=== PATIENT | male | born 1960 | race Caucasian/White ===

== ENCOUNTER 2025-04-11 09:46 | Emergency (ER) | payer OTHER, SELFPAY ==
--- NOTE | ~2025-04-11 | XR_ITS ---
EXAMINATION: XR chest 2V DATE: 04/11/2025 11:39 INDICATION: Shortness of breath and cough TECHNIQUE: PA and lateral views of the chest were obtained. COMPARISON: None FINDINGS: Perihilar bronchial wall thickening. No airspace opacities, pulmonary edema, pleural effusion or pneumothorax. The cardiomediastinal silhouette is normal. Mild to moderate thoracic spondylosis. IMPRESSION: 1. Perihilar bronchial wall thickening without focal airspace opacities which could be seen with bronchitis or reactive airway disease/asthma. Reviewed, dictated and finalized at location A. IMPRESSION: 1. Perihilar bronchial wall thickening without focal airspace opacities which c ould be seen with bronchitis or reactive airway disease/asthma.
[2025-04-11 09:52] VITALS: BP 161/80; PULSE 127; RESP 18; TEMP 36.8; O2SAT 98
--- NOTE | 2025-04-11 09:55 | ECG_ITS ---
Test Date: 2025-04-11 09:59:49 Measurements Intervals Mountain Rate: 109 P: 15 MD: 148 QRS: 32 QRSD: 82 T: 26 QT: 315 QTc: 425 Interpretive Statements SINUS TACHYCARDIA DELAYED PRECORDIAL R/S TRANSITION ABNORMAL ECG No previous ECG available for comparison Electronically Signed On 04-11-2025 10:32:46 CDT by Vicente Fleming D.O.
[2025-04-11 10:43] LABS: Influenza A QL RT-PCR Negative (Negative); Influenza B QL RT-PCR Negative (Negative); RSV RNA, RT-PCR Negative (Negative); SARS-CoV-2 RNA PCR Negative (Negative)
[2025-04-11 11:11] VITALS: O2SAT 98
[2025-04-11 11:51] LABS: Hematocrit 38.4 % (42.0-52.0); Hemoglobin 12.9 g/dL (14.0-18.0); Immature Granulocyte Percent A 0.4 % (0-0.5); Lymphocytes Absolute Auto 1.07 K/mm3 (0.9-3.2); Mean Corpuscular HGB Conc 33.6 g/dl (32-36); Mean Corpuscular Hemoglobin 31.1 pg (26-34); Mean Corpuscular Volume 92.5 fl (80-100); Nucleated Red Blood Cells Absolute Auto 0.000 K/mm3 (0.0-0.012); Nucleated Red Blood Cells Perc 0.0 % (0.0-0.2); Platelet Count Result 303 k/mm3 (150-375); Red Blood Count 4.15 M/mm3 (4.6-6.20); White Blood Count 10.2 K/mm3 (4.5-10.0)
--- NOTE | 2025-04-11 12:01 | ED_ITS ---
HPI - URI/Sore Throat General Chief Complaint: Upper Respiratory Infection Stated Complaint: URI sx Time Seen by Provider: 04/11/25 11:16 Source: patient Mode of arrival: ambulatory Limitations: no limitations History of Present Illness HPI Narrative: This is a 64 year old male that presents to the ER for cold symptoms. Ongoing over the last week. Reports cough, congestion. Reports he was seen by urgent care and placed on Augmentin. Reports he has had left sided chest pain radiating to his back. Worse with coughing. Related Data Allergies Allergy/AdvReac Type Severity Reaction Status Date / Time No Known Allergies Allergy Verified 04/11/25 11:15 Review of Systems 2 Review of Systems: All systems reviewed & are unremarkable except as noted in HPI and below Exam 2 Narrative: GENERAL: Well-appearing, well-nourished, and in no acute distress. HEAD: Normocephalic, atraumatic. EYES: EOMI. ENT: Nares clear, no rhinorrhea or epistaxis. Mucous membranes moist. Oropharynx without tonsillar hypertrophy exudate or other lesions. Bilateral TMs pearly sykes non-bulging NECK: Supple. No adenopathy or masses. CHEST: No respiratory distress. Lung sounds coarse with scattered wheezing. No rales or rhonchi HEART: Regular rate and rhythm. No murmur heard. Normal peripheral pulses. EXTREMITIES: Normal range of motion. No edema. SKIN: Warm, dry, no rash. NEURO: No focal deficits. Alert and oriented x3. PSYCH: Normal mood and affect Course Vital Signs Vital signs: Vital Signs Temperature 98.2 F 04/11/25 09:52 Pulse Rate 127 H 04/11/25 09:52 Respiratory Rate 18 04/11/25 09:52 Blood Pressure 161/80 H 04/11/25 09:52 Pulse Oximetry 98 04/11/25 09:52 Temperature 98.1 F 04/11/25 14:35 Pulse Rate 67 04/11/25 14:35 Respiratory Rate 15 04/11/25 14:35 Blood Pressure 142/87 H 04/11/25 14:35 Pulse Oximetry 100 04/11/25 14:35 Oxygen Delivery Room Air 04/11/25 11:11 MDM - URI/Sore Throat MDM Narrative Medical decision making narrative: Patient presents to the emergency department for cold symptoms. Ongoing over the last week. Currently taking Augmentin. He is afebrile and nontoxic appearing. Tachycardic upon arrival, this normalized without intervention. CBC with mild leukocytosis to 10.2. Metabolic panel without concerning findings. Influenza, RSV and COVID screens are negative. Chest x-ray showing findings of bronchitis. Patient given nebulizer treatment and steroid with relief. Instructed on further care bronchitis. He was given warnings to return to the ER Differential Diagnosis Differential diagnosis: Likely upper respiratory infection, sinusitis, viral infection, bronchitis, influenza and other (pneumonia) Lab Data Attestation: I reviewed the patient's lab results. 04/11/25 11:45 04/11/25 11:45 Labs: Lab Results 04/11/25 04/11/25 Range/Units 10:01 11:45 WBC 10.2 H (4.5-10.0) K/mm3 RBC 4.15 L (4.6-6.20) M/mm3 Hgb 12.9 L (14.0-18.0) g/dL Hct 38.4 L (42.0-52.0) % MCV 92.5 (80-100) fl MCH 31.1 (26-34) pg MCHC 33.6 (32-36) g/dl RDW 12.6 (11.5-14.5) % Plt Count 303 (150-375) k/mm3 MPV 9.2 (7.4-10.4) fl Immature Gran % (Auto) 0.4 (0-0.5) % Neut % (Auto) 73.7 H (45.5-73.1) % Lymph % (Auto) 10.5 L (18.3-44.2) % Marathon % (Auto) 13.2 H (2.6-8.5) % Eos % (Auto) 1.8 (0-4.4) % Baso % (Auto) 0.4 (0.2-1.2) % Lymph # (Auto) 1.07 (0.9-3.2) K/mm3 Marathon # (Auto) 1.3 H (0.1-0.6) K/mm3 Eos # (Auto) 0.2 (0-0.3) K/mm3 Baso # (Auto) 0.0 (0.0-0.1) K/mm3 Abs Immat Gran (auto) 0.04 H (0.00-0.031) K/mm3 Absolute Neuts (auto) 7.5 H (1.3-6.7) K/mm3 Absolute Nucleated RBC 0.000 (0.0-0.012) K/mm3 Nucleated RBC % 0.0 (0.0-0.2) % PT 13.6 (11.1-14.7) Seconds INR 1.0 APTT 30.1 (22.3-36.8) Seconds Sodium 135 L (137-145) mmol/L Potassium 4.2 (3.4-5.0) mmol/L Chloride 97 L (98-107) mmol/L Carbon Dioxide 30 (22-30) mmol/L Anion Gap 8 (4-12) mmol/L BUN 14 (9-20) mg/dL Creatinine 0.84 (0.7-1.3) mg/dL Estim Creat Clear Calc 89 ml/min Estimated GFR > 60 (59 - ) Glucose 120 H (65-110) mg/dL Calcium 9.7 (8.4-10.2) mg/dL Total Bilirubin 1.0 (0.2-1.3) mg/dL AST 30 (17-59) U/L ALT 51 H (6-50) U/L Alkaline Phosphatase 64 (38-126) U/L Troponin I < 0.012 (0.000-0.034) ng/mL Total Protein 8.4 H (6.3-8.2) g/dL Albumin 4.8 (3.5-5.1) g/dL Influenza A (RT-PCR) Negative (Negative) Influenza B (RT-PCR) Negative (Negative) RSV (RT-PCR) Negative (Negative) SARS-CoV-2 RNA (RT-PCR) Negative (Negative) Imaging Data Radiologist's impression: ITS Impressions Chest X-Ray 04/11/25 11:42 IMPRESSION: 1. Perihilar bronchial wall thickening without focal airspace opacities which could be seen with bronchitis or reactive airway disease/asthma. Critical Care Time Critical Care Time Critical Care Time: No Discharge Plan Discharge Clinical Impression: Bronchitis Patient Disposition: Home Condition: Improved Instructions: Acute Bronchitis (ED) Additional Instructions: Return to the emergency department for worsening symptoms, or any other concerns Remain well-hydrated, get plenty of rest. Take Tylenol or Motrin [id number] for pain as needed. Flonase for nasal congestion. Zyrtec for runny nose. Albuterol every 4-6 hours as needed for shortness of breath or wheezing. Continue steroid as prescribed Follow up with primary care doctor Patient Language: Irish Prescriptions: New prednisone 20 mg tablet 40 mg PO DAILY 4 Days Qty: 8 0RF albuterol sulfate [Ventolin HFA] 90 mcg/actuation HFA aerosol inhaler 2 puff inhalation QID PRN (Reason: shortness of breath or wheezing) Qty: 8.5 0RF albuterol sulfate 2.5 mg/0.5 mL solution for nebulization 5 mg inhalation Q6H PRN (Reason: shortness of breath or wheezing) Qty: 30 0RF Follow-up/Referrals: Aster Apodaca PA [Primary Care Provider, Hospitalist]
[2025-04-11 12:05] LABS: INR 1.0; Prothrombin Time 13.6 Seconds (11.1-14.7)
[2025-04-11 12:06] LABS: Partial Thromboplastin Time 30.1 Seconds (22.3-36.8)
[2025-04-11 12:16] LABS: Alanine Aminotransferase 51 U/L (6-50); Albumin Level 4.8 g/dL (3.5-5.1); Alkaline Phosphatase 64 U/L (38-126); Anion Gap 8 mmol/L (4-12); Aspartate Amino Transferase 30 U/L (17-59); Bilirubin,Total 1.0 mg/dL (0.2-1.3); Blood Urea Nitrogen 14 mg/dL (9-20); Calcium 9.7 mg/dL (8.4-10.2); Carbon Dioxide 30 mmol/L (22-30); Chloride 97 mmol/L (98-107); Estimated CRCL calculation 89 ml/min; Estimated Glomerular Filt Rate > 60; Glucose 120 mg/dL (65-110); Potassium 4.2 mmol/L (3.4-5.0); Sodium 135 mmol/L (137-145); Total Protein 8.4 g/dL (6.3-8.2)
[2025-04-11 12:19] VITALS: PULSE 96; RESP 20
[2025-04-11] MEDS: IPRATROPIUM 0.5 MG/ALBUTEROL SULFATE 2.5 MG (BASE) AMPUL.NEB 3 ML INHALATION (12:19)
[2025-04-11 12:27] VITALS: PULSE 103; RESP 20
[2025-04-11 12:42] LABS: Troponin I < 0.012 ng/mL (0.000-0.034)
[2025-04-11 14:35] VITALS: BP 142/87; PULSE 67; RESP 15; TEMP 36.7; O2SAT 100
== END 2025-04-11 14:36 | disposition home or self-care (01) ==
PROVIDERS: Emergency Medicine; Emergency Provider Physician Assistant; PCP Physician Assistant
DX: J40 Bronchitis, not specified as acute or chronic (principal); Z20.822 Contact with and (suspected) exposure to COVID-19
CPT/HCPCS: 36415; 71046; 80053; 84484; 85025; 85610; 85730; 87637; 93005; 94640; 96374; 99284; J2919

== ENCOUNTER 2025-04-30 10:18 | Observation (INO) | payer OTHER, SELFPAY ==
--- OUTSIDE RECORDS SUMMARY | 2008-12-31 05:00 | XMS_ITS | Continuity of Care Document ---
Author Organization [facility] Address [address] [place] [address] Phone Care Team Providers Care Customer Supply Chain Analyst Name Role Phone Unavailable Unavailable Unavailable Procedures Procedure Date Postop followup visit Postop followup visit X-ray exam of pelvis, 1-2 views 009 X-ray exam of hip, 1 view Total hip arthroplasty &prosthesis Office/outpatient visit,[facility] [place] X-ray exam of hip, 1 view Disability Form Advance Directives Directive Yes / No Effective Date File Name No Information Encounters Encounter Description Practice Location Reason(s) For Visit Diagnoses Date Provider Providers Copied on Encounter [facility], [address], [place], [place], [id number], [place] tel:[phone] [employer] [facility] No Information No Information Referring Provider: Johnnie Medina, [address] [place] [address] [address], [place], [address]. tel:[phone] [facility], [address], [place], [place], [id number], [place] tel:[phone] [employer] [facility] No Information No Information Referring Provider: Johnnie Medina, [address] [place] [address] [address], [place], [address]. tel:[phone] [employer] [facility], [address] [facility] [address], [place], [id number], [place] tel:[phone] [facility] No Information 9 No Information Referring Provider: Johnnie Medina, [address], [place], [address]. tel:[phone] Office/outpat ient visit,[place], [facility] [place] [facility], [address] [address], [place], [place], [id number], [place] tel:[phone] [facility] [employer] [facility] No Information 9 No Information Referring Provider: Johnnie Medina, [address], [place], [address]. tel:[phone] [facility], [address] [facility] [facility] [address], [place], [place], [id number], [place] tel:[phone] [facility] [employer] [employer] [facility] No Information 9 No Information Family History Family Member Type Diagnosis Age At Onset No Information Payers Payer name Insurance type Covered libertarian ID Beatriz real(s) Chris [facility] [employer] [facility] [id number] Social History Type Description Quantity Date Captured Comments Sex Male Smoking Status No Information Chief Complaint And Reason For Visit No Information Reason For Referral Reason For Referral No Information History Of Present Illness Encounter Date Complaint History Of Prese nt Illness No Information Functional Status Date Functional Assessmen t No Information Instructions Date Instruction Additional Infor mation No Information Assessments Type Assessment Date No Information Patient Care Teams Name Effective Dates (start - stop) Status Members No Information
--- OUTSIDE RECORDS SUMMARY | 2008-12-31 05:00 | XMS_ITS | Continuity of Care Document ---
Author Organization [facility] Address [address] [place] [address] Phone Care Team Providers Care Chemist Inorganic Name Role Phone Unavailable Unavailable Unavailable Procedures Procedure Date Postop followup visit Postop followup visit X-ray exam of pelvis, 1-2 views 009 X-ray exam of hip, 1 view Total hip arthroplasty &prosthesis [place] [place] exam of hip, 1 view Disability Form Advance Directives Directive Yes / No Effective Date File Name No Information Encounters Encounter Description Practice Location Reason(s) For Visit Diagnoses Date Provider Providers Copied on Encounter [facility] [employer] [employer] [facility], [address] [facility] [address], [place], [place], [id number], [place] tel:[phone] [employer] [facility] No Information No Information Referring Provider: Johnnie Medina, [address] [place] [address] [address], [place], [address]. tel:[phone] [facility], [address], [place], [place], [id number], [place] tel:[phone] [employer] [facility] No Information No Information Referring Provider: Johnnie Medina, [address] [place] [address] [address], [place], [address]. tel:[phone] [employer] [facility], [address] [facility] [address], [place], [id number], [place] tel:[phone] [facility] No Information 9 No Information Referring Provider: Johnnie Medina, [address] [facility] [address] [facility] [address], [place], [address]. tel:[phone] [place] [facility] [place] [facility], [address] [facility] [address], [place], [place], [id number], [place] tel:[phone] [facility] [employer] [facility] No Information 9 No Information Referring Provider: Johnnie Medina, [address] [facility] [address], [place], [address]. tel:[phone] [facility], [address] [facility] [address], [place], [place], [id number], [place] tel:[phone] [facility] [employer] No Information 9 No Information Family History Family Member Type Diagnosis Age At Onset No Information Payers Payer name Insurance type Covered democrat ID Beatriz rael(s) Chris [facility] [employer] [facility] [id number] Social History Type Description Quantity Date Captured [...]
[2025-04-30] VITALS (8 sets, daily range): BP systolic 122–158; BP diastolic 52–94; PULSE 73–97; RESP 16–20; TEMP 36.4–36.6; O2SAT 95–100; BMI 31.7
--- NOTE | ~2025-04-30 | XR_ITS ---
EXAM/PROCEDURE: XR UGI w small bowel HISTORY: melena, negative egd COMPARISON: None available. TECHNIQUE: Air contrast upper GI and small bowel follow-through series performed. Effervescent crystals, as well as thickened thin barium were employed. Last be time: 1.9 minutes Number of images: 37 DAP: 559.69 [place] per square centimeter FINDINGS: Small hiatal hernia and tertiary contractions in the esophagus noted. The esophagus otherwise appears normal and patent. No reflux was elicited on provocative maneuvers. Gastroesophageal junction unremarkable other than the small hiatal hernia. The air contrast images of the stomach and duodenal bulb very limited. No large ulceration, extravasation of contrast or obvious mass. On the small bowel series, contrast flowed rapidly through the small bowel probably in the right hemicolon within 30 minutes. No obvious strictures or obstructions. No extravasation of contrast. IMPRESSION: 1. Small hiatal hernia and tertiary contractions of the esophagus suggesting esophagitis. Otherwise normal-appearing esophagus. 2. Limited air contrast images of the stomach which otherwise appear normal. The duodenal bulb is poorly evaluated and endoscopic evaluation should be considered as clinically appropriate. 3. Rapid transit of contrast through the small bowel. Query if patient has presentation suggestive of hyperactive bowel. No evidence of obstruction or extravasation. Reviewed, dictated and finalized at location A. TES GRINDER IMPRESSION: 1. Small hiatal hernia and tertiary contractions of the esophagus suggesting es ophagitis. Otherwise normal-appearing esophagus. 2. Limited air contrast images of the stomach which otherwise appear normal. Th e duodenal bulb is poorly evaluated and endoscopic evaluation should be conside red as clinically appropriate. 3. Rapid transit of contrast through the small bowel. Query if patient has pres entation suggestive of hyperactive bowel. No evidence of obstruction or extrava sation.
--- NOTE | ~2025-04-30 | CT_ITS ---
EXAMINATION: CTA abdomen pelvis DATE: 04/30/2025 14:35 INDICATION: Gastrointestinal bleed. TECHNIQUE: Computed tomographic angiography (CTA) of the abdomen and pelvis was performed with 100 mL Omnipaque-350 intravenous contrast. Additional 3D reconstructions utilizing rotating maximum intensity projection (MIP) were performed. Automated exposure control and iterative reconstruction technique were employed. The dose-length product was 880.21 mGy-cm. COMPARISON: None FINDINGS: Lung bases are clear. Heart size is normal. No pericardial or pleural effusion. Calcified paraesophageal lymph node consistent with old granulomatous disease. Diffuse hepatic steatosis with focal sparing along the gallbladder fossa. Gallbladder, spleen, pancreas, bilateral adrenal glands and kidneys are normal. Bladder is normal. There is mild scattered colonic diverticulosis without adjacent inflammatory change to suggest diverticulitis. Small bowel and appendix are normal. No bowel intraluminal contrast to suggest active gastrointestinal hemorrhage. Change of prior umbilical hernia mesh repair. F usiform infrarenal abdominal aortic aneurysm measuring up to 4.7 cm maximal diameter. Very small endothelial flap along the left side of the abdominal aorta near the bifurcation. Moderate 50-70% stenosis at the origins of the bilateral renal arteries. Moderate-sized fat-containing left inguinal hernia. Resurfacing type right total hip arthroplasty. Moderate lumbosacral and mild lumbar and lower thoracic spondylosis. IMPRESSION: 1. No evident gastrointestinal bleed or other acute intra-abdominal/pelvic process. 2. 4.7 cm infrarenal abdominal aortic aneurysm with small endotracheal flap near the aortic bifurcation. 3. Moderate 50-70% stenosis of the origins of the bilateral renal arteries. 4. Diffuse hepatic steatosis. 5. Moderate-sized fat-containing left inguinal hernia. Reviewed, dictated and finalized at location A. [employer]DER IMPRESSION: 1. No evident gastrointestinal bleed or other acute intra-abdominal/pelvic proc ess. 2. 4.7 cm infrarenal abdominal aortic aneurysm with small endotracheal flap anna r the aortic bifurcation. 3. Moderate 50-70% stenosis of the origins of the bilateral renal arteries. 4. Diffuse hepatic steatosis. 5. Moderate-sized fat-containing left inguinal hernia.
--- NOTE | ~2025-04-30 | NM_ITS ---
EXAMINATION: NM GI bleeding DATE: 05/02/2025 09:36 INDICATION: Melena with negative endoscopy TECHNIQUE: 23.4 mCi Tc 99m in vitro labeled red cells administered intravenously. Scintigraphic images of the abdomen were obtained through one hour. FINDINGS: No pattern of abnormal activity is seen in the abdomen or pelvis to suggest gastrointestinal hemorrhage. IMPRESSION: 1. No scintigraphic evidence for active gastrointestinal bleeding. Reviewed, dictated and finalized at location A. UNT SUPPORT REP
--- OUTSIDE RECORDS SUMMARY | 2025-04-30 11:04 | XMS_ITS | Clinical Summary ---
Author Organization [facility] Address [address] [place] [address] Care Team Providers Care Bicycle Repairer Name Role Phone Brittny Lujan Primary Care Provider Source Comments [facility],non-owned Affiliates and Associated Physician Practices is amultiple site organization consisting of ambulatory clinics and hospital sitesin [place], [place], [place] and [place]. This disclosure is being madepursuant to the Care Everywhere program and may not contain all information available regarding this patient. Last updated 18.[facility] Allergies No known active allergies Medications * Be aware that medications may not be up to date on this document. Alwaysverify current medications with the patient. atorvastatin (LIPITOR) 20 MG tablet Take 20 mg by mouth once daily 11/11/2020 Active losartan-hydroC HLOROthiazide (HYZAAR) 100-25 MG tablet Take 1 tablet by mouth once daily 11/30/2020 Active HYDROcodone-neel taminophen (NORCO) 7.5-325 MG tablet Take 1 (one) tablet by mouth every 4 hours as needed for Pain 15 tablet 12/13/2020 Active metFORMIN (GLUCOPHAGE) 1000 MG tablet Take 500 mg by mouth once daily Active aspirin (ASPIRIN) 81 MG chew tablet Take 1 (one) tablet by mouth 2 times daily with morning and evening meal 11/19/2021 Active docusate sodium (COLACE) 100 MG capsule Take 1 (one) capsule by mouth 2 times daily 11/19/2021 Active Active Problems Problem Noted Date Diagnosed Date History of partial knee replacement 11/18/2021 Severe sepsis 12/11/2020 Septic shock 12/11/2020 Cardiac arrest 12/10/2020 Immunizations Immunization Administration Dates Next Due INFLUENZA VACCINE, QUADR. (F LUZONE; FLULAVAL; FLUARIX; AFLURIA QUADRIVALENT; 6MO+), 0.5 ML (IIV4) 07/01/2020 Zoster Hzv Vacc Recombinant Inj Im 09/04/2020, Family History Medical History Relation Name Comments Stroke Maternal Grandmother CAD (Coronary Artery Disease) Mother Diabetes Mother Hypertension Mother Relation Name Status Comments Maternal Grandmother Mother Social History Tobacco Use Types Packs/Day Years Used Date Smoking Tobacco: Former Cigarettes Q uit: 07/13/2000 Smokeless Tobacco: Never Alcohol Use Standard Drinks/Week Comments Yes 0 (1 standard drink = 0.6 oz pur e alcohol) Hunger Vital Sign Answer Date Recorded Within the past 12 months, y ou worried that your food would run out before you got the money to buy more. Never true 11/20/19 Within the past 12 months, t he food you bought just didn't last and you didn't have money to get more. 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 Gender Identity Not on file Sexual Orientation Not on file Last Filed Vital Signs Vital Sign Reading Time Taken Comments Blood Pressure 144/67 11/19/2021 1:05 PM CDT Pulse 92 11/19/2021 1:05 PM CDT Temperature 36.7 C (98 F) 11/19/2021 1:05 PM CDT Respiratory Rate 18 11/19/2021 1:05 PM CDT Oxygen Saturation 92% 11/19/2021 1:05 PM CDT Inhaled Oxygen Concentration 40% 12/11/2020 5 :12 AM CDT Weight 104.3 kg (230 lb) 11/12/2021 8:27 AM CDT Height 172.7 cm (5' 8) 11/12/2021 8:27 AM CDT Body Mass Index 34.97 11/12/2021 8:27 AM CDT Plan of Treatment Health Maintenance Due Date Last Done Comments CT COLONOGRAPHY - COLON CA SCREENING 1960 FIT - COLON CA SCREENING 1960 FLEX SIG - COLON CA SCREENING 1960 HIV SCREENING 1975 HEPATITIS C SCREENING 06/25/1978 DTAP/TDAP/TD VACCINES (1 - Tdap) 1979 PNEUMOCOCCAL VACCINE 50+ (1 of 1 - PCV) 2010 COLOGUARD (AGES 45-75) - COL ON CA SCREENING 08/27/2023 08/26/2020 DEPRESSION SCREENING 06/21/2024 COVID-19 VACCINE (1 - 2023-2 5 season) 2025 INFLUENZA VACCINE (#1) 2025 07/01/2020 COLON MONITORING 09/13/2030 09/13/2020 COLONOSCOPY - COLON CA SCREENING 09/13/2030 09/13/2020 Colorectal Cancer Screening 09/13/2030 Respiratory Syncytial Virus (RSV) Vaccine Pt: or over 60 yrs (1 - 1-dose 75+ series) 2035 ZOSTER VACCINE Completed 09/04/2020, 07/01/2020 HEPATITIS B VACCINE Aged Out No longe r eligible based on patient's age to complete this topic HIB VACCINE Aged Out No longer eligi ble based on patient's age to complete this topic HPV VACCINE Aged Out No longer eligi ble based on patient's age to complete this topic MENINGOCOCCAL (Group B) VACCINE SHARED DECISION-MAKING Aged Out No longer eligible based on patient's age to complete this topic MENINGOCOCCAL GROUPS A/C/Y/W VACCINE Aged Out No longer eligible b ased on patient's age to complete this topic Medical Devices Implanted Type Area Telesales Representative Device Identifier Shelf Expiration Date Model / Serial / Lot Mesh Physio 10cm X 15cm Implanted:Qty: 1 on 07/13/2013 by Deng Busch MD at [facility] N/A: Abdomen [employer] 01/18/2015 [id number] / / [id number] Twin Peg Femoral Implanted:Qty: 1 on 11/18/2021 by Merritt Barragan MD at [facility] Left: Knee [employer] 08/22/2031 [id number] / / [id number] Tray Tib Oxfd C Lt Mdl Uncmp Implanted:Qty: 1 on 11/18/2021 by Merritt Barragan MD at [facility] Left: Knee [employer] 09/03/2031 [id number] / / [id number] Cmnt Bone Djo Srg Cblt 40gm Hvisc Strl Implanted:Qty: 1 on 11/18/2021 by Merritt Barragan MD at [facility] Left: Knee [employer] 01/01/2023 [id number] / / [id number] Brng 3mm Oxfd Arcm Kn Lt Mnscl Phs 3 Implanted:Qty: 1 on 11/18/2021 by Merritt Barragan MD at [facility] Left: Knee [employer] 07/02/2026 [id number] / / [id number] Insurance [address] CARE Advance Directives * Full Code (Latest Code Status on File) Date Activated Date Inactivated Comments 11/18/2021 8:09 PM 11/19/2021 7:55 PM * Full Code Date Activated Date Inactivated Comments 12/10/2020 3:08 PM 12/13/2020 1:51 PM Care Teams Bicycle Repairer Relationship Specialty Start Date End Date Brittny Luajn DO [address] [place] [phone] PCP - General Family Medicine 12/10/20
--- OUTSIDE RECORDS SUMMARY | 2025-04-30 11:04 | XMS_ITS | Clinical Summary ---
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 [employer] Gender Identity Not on file Sexual Orientation Not on file Plan of Treatment Health Maintenance Due Date Last Done Comments Hepatitis C Virus (HCV) Screening 1960 TdaP Immunization 1960 Cologuard 2005 Colonoscopy 2005 Colorectal Cancer Screening 2005 Immunochemical Fecal Occult Blood 2005 Pneumococcal Immunization (5 0+ years) (1 of 1 - PCV) 2010 Zoster Immunization (1 of 2) 2010 Influenza Immunization (#1) 02/19/202507/2018, 04/12/2018 SARS-COV-2 Immunization ( - season) 2025 Respiratory Syncytial Virus (RSV) Immunization (Adult) (1 - 1-dose 75+ series) 2035 Hepatitis B Immunization Aged Out No longer eligible based on patient's age to complete this topic Human Papillomavirus (HPV) Immunization Aged Out No longer eligible b ased on patient's age to complete this topic Meningococcal Immunization (ACWY) Aged Out No longer eligible b ased on patient's age to complete this topic Rotavirus Immunization Aged Out No lo nger eligible based on patient's age to complete this topic
--- NOTE | 2025-04-30 12:58 | ED_ITS ---
HPI - GI Bleed General Chief complaint: GI Bleed Stated complaint: black tarry stool Time Seen by Provider: 04/30/25 12:39 Source: patient Mode of arrival: ambulatory Limitations: no limitations History of Present Illness HPI Narrative: Patient presents with reported black tarry stool starting on Wednesday. It has occurred each time he has a bowel movement, approximately 8 episodes. This started on 04/28 2025. He initially states he has a history an abscess on his aorta which gets routine monitoring. Through further discussion it was clarifies that he seems to mean he has an abdominal aortic aneurysm which he gets surveillance on, last performed 2 years ago and reportedly an estimated 4.2 cm although he is not certain about the measurement. He states this takes place through [facility] and he had previously seen a surgeon through [place] to discuss this. He is not on anticoagulation or NSAIDs. Not on steroids chronically although he reports that he was seen approximately a month ago for congestion. 81 mg aspirin is taken. He states this has never happened before. He denies any abdominal pain. He does follow regularly with a psychiatric technician assistant but did have a colonoscopy performed somewhere else approximately 1-2 years ago and states that he did have a few polyps removed during this. He does not take iron or Pepto-Bismol. He describes the stool as melena although he notes that if he leaves the stools that in the toilet bowl it will have red blood that seems to leak out of it. Tried to call his PCP Dr Zavala in [place] (although hasn't established with them yet) but was told to come to the ED. LBM this AM. Related Data Home Medications ?Medication ?Instructions ?Recorded ?Confirmed ?Last Taken ?Type atorvastatin 20 mg tablet 20 mg PO DAILY 04/30/2504/2104/30/25 History losartan 100 1 tablet PO DAILY 04/30/25 1 06/30/24 04/30/25 History mg-hydrochlorothiazide 25 mg tablet metformin 500 mg tablet,extended 500 mg PO .q noon 04/1404/30/25 04/29/25 History release 24 hr Allergies Allergy/AdvReac Type Severity Reaction Status Date / Time No Known Allergies Allergy Verified 04/30/25 17:35 [facility] Past Medical History Medical History (Updated 05/01/25 @ 00:11 by Iwona Perrin MD) Bronchitis March 2025 Abdominal aortic aneurysm Surgical History Surgical History History of colonoscopy approx Family History Family History (Updated 04/30/25 @ 17:43 by Dionne Lundberg RN) Mother Heart disease Hypertension MVA (motor vehicle accident) Sibling Throat cancer Cerebrovascular accident Father Accident at workplace Social History Social History Smoking packs per day: 1 Smoking cigarettes per day: 20.0 Smoking status: Former smoker Tobacco type: cigarettes Second hand tobacco smoke exposure: No Smoking end date: 06/21/99 Alcohol intake: current Drinks per week: 25 Substance use: current Substance use type: marijuana Other substance usage details: 04/28/25 Lack of Transportation: No Lack of Food: Never True Current Housing: I Have Housing Concerned About Future Housing: No Difficulty Paying Gas/Electric Bills: No Difficulty Paying for Meds: No Currently Unemployed: No Education: High School Diploma/GED Difficulty w/ Childcare or Family Care: No Spiritual care concerns: No Exam 2 Narrative: GENERAL: Well-appearing, well-nourished, and in no acute distress. HEAD: Normocephalic, atraumatic. EYES: Non injected, non icteric ENT: Nares clear, no rhinorrhea or epistaxis. Gross auditory acuity intact. NECK: Supple. No meningismus. CHEST: Speaking in full sentences. No respiratory distress. HEART: Regular rate and rhythm. . ABDOMEN: Soft, nondistended. No rigidity or guarding. Not peritoneal. No TTP throughout. EMANI: Dark stool appreciated at rectum and on gloved lubricated finger after EMANI. Normal rectal tone. FOBT/guiaic strongly positive in both windows/james. EXTREMITIES: Normal range of motion. No lower extremity edema. SKIN: Warm, dry, no rash. NEURO: No focal deficits. Alert and oriented. Answering questions. Following commands. Normal speech without aphasia or dysarthria. PSYCH: Normal mood and affect. Course Vital Signs Vital signs: Vital Signs Temperature 97.8 F 04/30/25 10:22 Pulse Rate 97 04/30/25 10:22 Respiratory Rate 16 04/30/25 10:22 Blood Pressure 158/52 H 04/30/25 10:22 Pulse Oximetry 100 04/30/25 10:22 Oxygen Delivery Room Air 04/30/25 10:22 Temperature 97.5 F L 04/30/25 22:14 Pulse Rate 85 04/30/25 22:14 Respiratory Rate 16 04/30/25 22:14 Blood Pressure 122/58 L 04/30/25 22:14 Pulse Oximetry 97 04/30/25 22:14 Oxygen Delivery Autopap 04/30/25 23:33 MDM - GI Bleed MDM Narrative Medical decision making narrative: Exceedingly pleasant 64yo male presents with report of black tarry stool, description consistent with melena. In the emergency department he is afebrile with vital signs that show elevated SBP and low DBP but mAP 87mmHg. He has a normocytic anemia. This is a 2.7 g drop from previous which was within the past month or so. Repeat 4hr H/H is ordered. Normal INR. Lactic acid normal. Normal renal function. Mild hyponatremia though not significant drop from previous. Patient denies chronically being on steroids but notably when he was here 04/11/2025 he was given he short course of steroids at that time, likely completed before the end of March. CTA ordered given his history of known abdominal aortic aneurysm. Upper GI BLEED: Santo-Blatchford bleeding score: Based on patient's Hgb, BUN, initial SBP, sex, heart rate, presence/absence of melena, syncope, hepatic disease, cardiac failure 4?points A GBS greater than zero suggests a ?High Risk? GI bleed that is likely to require ?medical intervention?: transfusion, endoscopy, or surgery. A higher GBS also correlated with a higher likelihood of needing intervention (scores >= are associated with >50% risk of needing intervention) versus Lower GI BLeed: Dor[place] Score (predicts readmission risk in patients with acute lower GI bleeding) Based on age, sex, previous lower GI bleed admission, EMANI findings, HR, SBP, and initial Hgb: 20 points 50-62?% Probability of safe discharge (absence of rebleeding, blood transfusion, therapeutic intervention, 28 day readmission, or ). Discharge NOT recommended. Consider admission with further workup and resuscitation as necessary. == Urinalysis unremarkable. DIscussed with Dr Ken Guardado, psychiatric technician assistant who concurs with admission decision and is aware patient has a AAA but CTA without evidence of communication/pathology. Patient amenable to staying. Discussed with [facility] who accepts patient. Informed of patient's AAA as well which is <5cm. IV protonix ordered after patient had left the ED. Differential Diagnosis Differential diagnosis: Likely hemorrhoids, gastritis, Upper gastrointestinal hemorrhage, Lower gastrointestinal hemorrhage, hematochezia, melena and other (Diverticulosis, angiodysplasia, Meckel's diverticulum. Colon cancer, ischemic bowel and anal fissure less likely given painless. IBD/infectious diarrhea; aortic aneurysm/catastrophe) Lab Data Attestation: I reviewed the patient's lab results. 04/30/25 16:37 04/30/25 12:52 Labs: Lab Results 04/30/25 04/30/25 Range/Units 12:52 13:27 WBC 4.9 (4.5-10.0) K/mm3 RBC 3.29 L (4.6-6.20) M/mm3 Hgb 10.2 L (14.0-18.0) g/dL Hct 30.2 L (42.0-52.0) % MCV 91.8 (80-100) fl MCH 31.0 (26-34) pg MCHC 33.8 (32-36) g/dl RDW 12.8 (11.5-14.5) % Plt Count 275 (150-375) k/mm3 MPV 9.2 (7.4-10.4) fl Immature Gran % (Auto) 0.6 H (0-0.5) % Neut % (Auto) 59.3 (45.5-73.1) % Lymph % (Auto) 23.4 (18.3-44.2) % [place] % (Auto) 10.6 H (2.6-8.5) % Eos % (Auto) 5.3 H (0-4.4) % Baso % (Auto) 0.8 (0.2-1.2) % Lymph # (Auto) 1.15 (0.9-3.2) K/mm3 [place] # (Auto) 0.5 (0.1-0.6) K/mm3 Eos # (Auto) 0.3 (0-0.3) K/mm3 Baso # (Auto) 0.0 (0.0-0.1) K/mm3 Abs Immat Gran (auto) 0.03 (0.00-0.031) K/mm3 Absolute Neuts (auto) 2.9 (1.3-6.7) K/mm3 Absolute Nucleated RBC 0.000 (0.0-0.012) K/mm3 Nucleated RBC % 0.0 (0.0-0.2) % PT 13.4 (11.1-14.7) Seconds INR 1.0 APTT 25.7 (22.3-36.8) Seconds Sodium 132 L (137-145) mmol/L Potassium 4.1 (3.4-5.0) mmol/L Chloride 97 L (98-107) mmol/L Carbon Dioxide 31 H (22-30) mmol/L Anion Gap 4 (4-12) mmol/L BUN 16 (9-20) mg/dL Creatinine 0.75 (0.7-1.3) mg/dL Estim Creat Clear Calc 97 ml/min Estimated GFR > 60 (59 - ) Glucose 106 (65-110) mg/dL Lactic Acid 0.8 (0.7-2.0) mmol/L Calcium 9.2 (8.4-10.2) mg/dL Total Bilirubin 0.7 (0.2-1.3) mg/dL AST 37 (17-59) U/L ALT 48 (6-50) U/L Alkaline Phosphatase 65 (38-126) U/L NT-Pro-B Natriuret Pep < 20 (19.9-100) pg/mL Total Protein 7.0 (6.3-8.2) g/dL Albumin 4.2 (3.5-5.1) g/dL Urine Color Yellow (Yellow) Urine Appearance Clear (Clear) Urine pH 6.5 (5.0-9.0) Ur Specific [place] 1.008 (1.001-1.035) Urine Protein Negative (Negative) mg/dL Urine Glucose (UA) Negative (Negative) mg/dL Urine Ketones Negative (Negative) mg/dL Ur Blood (Man) Negative (Negative) Urine Nitrate Negative (Negative) Urine Bilirubin Negative (Negative) Urine Urobilinogen 0.2 (<2.0) mg/dL Leukocyte Esterase Rfl Negative (Negative) SHANNAN/UL Blood Type O Positive Antibody Screen Negative Imaging Data Radiologist's impression: Impressions Abdomen/Pelvis CTA 04/30/25 14:37 IMPRESSION: 1. No evident gastrointestinal bleed or other acute intra-abdominal/pelvic process. 2. 4.7 cm infrarenal abdominal aortic aneurysm with small endotracheal flap near the aortic bifurcation. 3. Moderate 50-70% stenosis of the origins of the bilateral renal arteries. 4. Diffuse hepatic steatosis. 5. Moderate-sized fat-containing left inguinal hernia. Discharge Plan Discharge Clinical Impression: Melena, Abdominal aortic aneurysm (AAA) 3.0 cm to 5.5 cm in diameter in male, Renal artery stenosis, Hepatic steatosis Patient Disposition: Still a Patient Condition: Stable
[2025-04-30 13:01] LABS: Hematocrit 30.2 % (42.0-52.0); Hemoglobin 10.2 g/dL (14.0-18.0); Immature Granulocyte Percent A 0.6 % (0-0.5); Lymphocytes Absolute Auto 1.15 K/mm3 (0.9-3.2); Mean Corpuscular HGB Conc 33.8 g/dl (32-36); Mean Corpuscular Hemoglobin 31.0 pg (26-34); Mean Corpuscular Volume 91.8 fl (80-100); Nucleated Red Blood Cells Absolute Auto 0.000 K/mm3 (0.0-0.012); Nucleated Red Blood Cells Perc 0.0 % (0.0-0.2); Platelet Count Result 275 k/mm3 (150-375); Red Blood Count 3.29 M/mm3 (4.6-6.20); White Blood Count 4.9 K/mm3 (4.5-10.0)
[2025-04-30 13:12] LABS: INR 1.0; Partial Thromboplastin Time 25.7 Seconds (22.3-36.8); Prothrombin Time 13.4 Seconds (11.1-14.7)
--- OUTSIDE RECORDS SUMMARY | 2025-04-30 13:16 | XMS_ITS | Clinical Summary ---
Author Organization [facility] Address [address] [place] [address] Care Team Providers Care Crusher Tender Name Role Phone Brittny Lujan Primary Care Provider [phone] Source Comments [facility],non-owned Affiliates and Associated Physician Practices is amultiple site organization consisting of ambulatory clinics and hospital sitesin [place], [place], [place] and [place]. This disclosure is being madepursuant to the Care Everywhere program and may not contain all information available regarding this patient. 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 [place] N/A: Abdomen [employer] 01/18/2015 [id number] / / [id number] Twin Peg Femoral Implanted:Qty: 1 on 11/18/2021 by Merritt Barragan MD at [facility] Left: Knee [employer] 08/22/2031 [id number] / / [id number] Tray Tib Oxfd C Lt Mdl Uncmp Implanted:Qty: 1 on 11/18/2021 by Merritt Barragan MD at [facility] [place] Left: Knee [employer] 09/03/2031 [id number] / / [id number] Cmnt Bone Djo Srg Cblt 40gm Hvisc Strl Implanted:Qty: 1 on 11/18/2021 by Merritt Barragan MD at [facility] Left: Knee [employer] 01/01/2023 [id number] / / [id number] Brng 3mm Oxfd Arcm Kn Lt Mnscl Phs 3 Implanted:Qty: 1 on 11/18/2021 by Merritt Barragan MD at [facility] [place] Left: Knee [employer] 07/02/2026 [id number] / / [id number] Insurance [address] CARE Advance Directives * Full Code (Latest Code Status on File) Date Activated Date Inactivated Comments 11/18/2021 8:09 PM 11/19/2021 7:55 PM * Full Code Date Activated Date Inactivated Comments 12/10/2020 3:08 PM 12/13/2020 1:51 PM Care Teams Crusher Tender Relationship Specialty Start Date End Date Brittny Lujan DO [address] [place] [id number] PCP - General Family Medicine 12/10/20
--- OUTSIDE RECORDS SUMMARY | 2025-04-30 13:16 | XMS_ITS | Clinical Summary ---
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
[2025-04-30 13:17] LABS: Alanine Aminotransferase 48 U/L (6-50); Albumin Level 4.2 g/dL (3.5-5.1); Alkaline Phosphatase 65 U/L (38-126); Anion Gap 4 mmol/L (4-12); Aspartate Amino Transferase 37 U/L (17-59); Bilirubin,Total 0.7 mg/dL (0.2-1.3); Blood Urea Nitrogen 16 mg/dL (9-20); Calcium 9.2 mg/dL (8.4-10.2); Carbon Dioxide 31 mmol/L (22-30); Chloride 97 mmol/L (98-107); Estimated CRCL calculation 97 ml/min; Estimated Glomerular Filt Rate > 60; Glucose 106 mg/dL (65-110); Potassium 4.1 mmol/L (3.4-5.0); Sodium 132 mmol/L (137-145); Total Protein 7.0 g/dL (6.3-8.2)
[2025-04-30 13:39] LABS: Add Urine Microscopic? NO; Appearance Urine Clear (Clear); Glucose Urine UA Negative (Negative); Leukocyte Esterase Ur Negative LEU/UL (Negative); Nitrate Urine Negative (Negative); Specific Grav Ur 1.008 (1.001-1.035)
[2025-04-30 14:23] LABS: NT Pro B Type Natriuretic Pept < 20 pg/mL (19.9-100)
[2025-04-30 16:50] LABS: Hematocrit 29.5 % (42.0-52.0); Hemoglobin 10.1 g/dL (14.0-18.0)
--- NOTE | 2025-04-30 16:56 | WPCEDHO ---
ED Hand Off Checklist All vitals saved: Y IV Site documented: Y All med administrations documented: Y Triage Note Triage Note Pt to ED co black tarry stool 04/30/25 11:25 that he states started 04/28/25. Pt states it has happened every time he has had a BM, estimating at least 8 episodes. denies abdominal pain. no distress. Last bloody stool was this morning Allergies No Known Allergies Allergy (Verified 04/30/25 11:33) Interventions/Assessments IV / Saline Lock, Insert Start: 04/30/25 10:19 Freq: Status: Active Protocol: Document 04/30/25 14:13 MJS (Rec: 04/30/25 14:13 MJS [id number]) IV Assessment Peripheral Access Left Antecubital IV Catheter Access Initiated IV Insertion Date 04/30/25 IV Insertion Time 14:13 Catheter Gauge 18 IV Insertion 1 Attempts Ultrasound Used for No Placement IV Site Assessment WNL IV Care and WNL Maintenance Last Vital Signs Temperature 97.8 F 04/30/25 10:22 Pulse Rate 77 04/30/25 16:18 Respiratory Rate 20 04/30/25 16:18 Pulse Oximetry 99 04/30/25 16:18 Blood Pressure 146/88 H 04/30/25 16:18 Blood Pressure Mean 107 04/30/25 16:18 Blood Pressure Position Supine 04/30/25 16:18 Oxygen Delivery Room Air 04/30/25 11:25 Weight 96.8 kg 04/30/25 11:25 Last Result - Abnormals Only RBC 3.29 M/mm3 (4.6-6.20) L 04/30/25 12:52 Hgb 10.1 g/dL (14.0-18.0) L 04/30/25 16:37 Hct 29.5 % (42.0-52.0) L 04/30/25 16:37 Immature Gran % (Auto) 0.6 % (0-0.5) H 04/30/25 12:52 [place] % (Auto) 10.6 % (2.6-8.5) H 04/30/25 12:52 Eos % (Auto) 5.3 % (0-4.4) H 04/30/25 12:52 Sodium 132 mmol/L (137-145) L 04/30/25 12:52 Chloride 97 mmol/L (98-107) L 04/30/25 12:52 Carbon Dioxide 31 mmol/L (22-30) H 04/30/25 12:52 Most Recent Suicide Severity Rating Suicide Severity Rating NO RISK INDICATED 04/30/25 11:25
--- NOTE | 2025-04-30 18:10 | PM.IMHP ---
H&P: HPI History of Present Illness Date/Time: 04/30/25 18:10 Chief Complaint: Dark tarry stool Narrative: 64-year-old male past medical history of HTN, dm 2, AAA presents to the ED on 04/30/2025 with complaints of dark tarry stool that started 2 days ago. Patient states he has these dark tarry stools every time he has a bowel movement and estimates this has happened roughly 8 times in the past 2 days. Patient states he does not take NSAIDs and is not on any chronic anticoagulation. Patient states that he has never had this happen before. Denies any abdominal pain, nausea, vomiting. Patient reports he had a colonoscopy performed elsewhere 1-2 years ago and had a few polyps removed. Last bowel movement was this morning. Initial vital signs 158/52, HR 97, respirations 16, afebrile and 100% on room air Labs notable for anemia with a drop in hemoglobin to 10.2 from 12.9 on 04/11. Sodium 132, chloride 97, carbon dioxide 31, UA negative for signs of infection. Chest x-ray with perihilar bronchial wall thickening without focal airspace opacities-can be seen with bronchitis or reactive airway disease/asthma. Abdomen pelvis CTA does not show evidence of GI bleed or other acute intra-abdominal/pelvic processes. 4.7 cm AAA with small endotracheal flap near the aortic bifurcation noted. 50-70% stenosis of the origins of bilateral renal arteries, diffuse hepatic stenosis, moderate size fat containing left inguinal hernia. Review of Systems Review of Systems: All systems reviewed & are unremarkable except as noted in HPI and below PMFSH Past Medical History Medical History (Updated 05/01/25 @ 00:39 by Jocelyn Petersen APRN) Bronchitis March 2025 Abdominal aortic aneurysm Surgical History Surgical History History of colonoscopy approx Family History Family History (Updated 04/30/25 @ 17:43 by Dionne Lundberg RN) Mother Heart disease Hypertension MVA (motor vehicle accident) Sibling Throat cancer Cerebrovascular accident Father Accident at workplace Social History Social History Smoking packs per day: 1 Smoking cigarettes per day: 20.0 Smoking status: Former smoker Tobacco type: cigarettes Second hand tobacco smoke exposure: No Smoking end date: 06/21/99 Alcohol intake: current Drinks per week: 25 Substance use: current Substance use type: marijuana Other substance usage details: 04/28/25 Lack of Transportation: No Lack of Food: Never True Current Housing: I Have Housing Concerned About Future Housing: No Difficulty Paying Gas/Electric Bills: No Difficulty Paying for Meds: No Currently Unemployed: No Education: High School Diploma/GED Difficulty w/ Childcare or Family Care: No Spiritual care concerns: No Meds Home Medications and Allergies Home Medications ?Medication ?Instructions ?Recorded ?Confirmed ?Type albuterol sulfate 2.5 mg/0.5 mL 5 mg inhalation Q6H PRN shortness 04/11/25 04/30/25 Rx solution for nebulization of breath or wheezing #30 ea albuterol sulfate 90 mcg/actuation 2 puff inhalation QID PRN 04/11/25 04/30/25 Rx aerosol inhaler (Ventolin HFA) shortness of breath or wheezing #8.5 grams atorvastatin 20 mg tablet 20 mg PO DAILY 04/30/25 04/30/25 History losartan 100 1 tablet PO DAILY 04/30/25 04/30/25 History mg-hydrochlorothiazide 25 mg tablet metformin 500 mg tablet,extended 500 mg PO .q noon 04/30/25 04/30/25 History release 24 hr Allergies Allergy/AdvReac Type Severity Reaction Status Date / Time No Known Allergies Allergy Verified 04/30/25 17:35 Vital Signs Vital Signs - 24 hr 04/30/25 10:22 04/30/25 11:25 04/30/25 12:00 Temperature 97.8 F Pulse Rate 97 73 82 Respiratory Rate 16 18 17 Blood Pressure 158/52 H 148/59 H 139/64 Pulse Oximetry 100 97 95 Oxygen Delivery Room Air Room Air 04/30/25 13:00 04/30/25 14:13 04/30/25 16:18 Temperature Pulse Rate 74 74 77 Respiratory Rate 16 18 20 Blood Pressure 125/94 H 127/58 L 146/88 H Pulse Oximetry 98 99 99 Oxygen Delivery Exam Narrative: GENERAL: non-toxic appearing, in no acute distress. HEAD: Normocephalic, atraumatic. EYES: PERRLA. Conjunctivae clear. NOSE: Normal no drainage. THROAT: Pharynx clear, no exudate. NECK: Trachea midline. No adenopathy, no masses. RESPIRATORY: Airway patent, respirations nonlabored. CTA. CARDIOVASCULAR: Regular rate and rhythm GASTROINTESTINAL: Abdomen is soft and nontender on palpation. No organomegaly. Bowel sounds normal in all quadrants. GENITOURINARY: Defer MUSCULOSKELETAL: Moves all extremities. No gross deformities. Moves all extremities well. No calf tenderness. SKIN: Warm, dry, normal color. NEURO: A&O X4. Speech clear PSYCHIATRIC: Normal interaction H&P: Results Labs Labs: Short CBC 04/30/25 04/30/25 Range/Units 12:52 16:37 WBC 4.9 (4.5-10.0) K/mm3 Hgb 10.2 L 10.1 L (14.0-18.0) g/dL Hct 30.2 L 29.5 L (42.0-52.0) % Plt Count 275 (150-375) k/mm3 BMP 04/30/25 12:52 Sodium 132 L Potassium 4.1 Chloride 97 L Carbon Dioxide 31 H BUN 16 Creatinine 0.75 Glucose 106 Calcium 9.2 Liver Function 04/30/25 Range/Units 12:52 Total Bilirubin 0.7 (0.2-1.3) mg/dL AST 37 (17-59) U/L ALT 48 (6-50) U/L Alkaline Phosphatase 65 (38-126) U/L Albumin 4.2 (3.5-5.1) g/dL Urine 04/30/25 Range/Units 13:27 Urine Color Yellow (Yellow) Urine Appearance Clear (Clear) Urine pH 6.5 (5.0-9.0) Ur Specific [place] 1.008 (1.001-1.035) Urine Protein Negative (Negative) mg/dL Urine Glucose (UA) Negative (Negative) mg/dL Assessment and Plan Assessment and plan (1) Melena: Code(s): K92.1 - Melena Status: Acute Assessment and Plan: Painless melena started on 04/28. Patient states he has had up to 8 dark tarry bowel movements over the past 2 days. Anemia with a drop in hemoglobin to 10.2 from 12.9 on 04/11. Patient not on anticoagulation. Abdomen pelvis CTA does not show evidence of GI bleed or other acute intra-abdominal/pelvic processes. -GI consult--> plan for EGD on 05/01. NPO at midnight -trend H&H -Protonix 40 mg daily -Zofran p.r.n. -avoid NSAIDs (2) Type 2 diabetes mellitus: Qualifiers: Diabetes mellitus senior living insulin use: without senior living use Diabetes mellitus complication status: without complication Qualified Code(s): E11.9 - Type 2 diabetes mellitus without complications Code(s): E11.9 - Type 2 diabetes mellitus without complications Status: Chronic Assessment and Plan: Glucose 106 on presentation. Metformin 500 mg daily at home. - hypoglycemia protocol - POC blood glucose ACHS - correct regimen ordered: Low-dose sliding scale - A1C with a.m. labs Plan Diet: Consistent carb-NPO tonight GI prophylaxis: Protonix 40 mg daily DVT prophylaxis: Patient up ad-binu. SCDs lines/drains: PIV Fluids: NA Code status: Full Quality VTE Prophylaxis VTE prophylaxis: mechanical ordered Hospitalist MIPS Advance Care Plan I have confirmed that the patient's Advanced Care Plan is present, code status is documented, or surrogate decision maker is listed in patient medical record.: Yes Medication Reconciliation I have utilized all available resources to obtain, update and review the patients current medications (includes all prescriptions, OTC, herbals, cannabis, and nutritional supplements).: Yes
[2025-04-30] MEDS: PANTOPRAZOLE SODIUM IV 40 MG VIAL IV PUSH (18:51)
[2025-05-01] VITALS (8 sets, daily range): BP systolic 127–146; BP diastolic 59–79; PULSE 70–84; RESP 16–22; TEMP 36.3–36.8; O2SAT 95–100
[2025-05-01 05:24] LABS: Hemoglobin A1C 5.9 % (<5.7)
--- NOTE | 2025-05-01 08:48 | PM.IMPN ---
Progress Note: A&P Assessment and Plan (1) Melena: Code(s): K92.1 - Melena Status: Acute Assessment and Plan: Painless melena started on 04/28. Patient states he has had up to 8 dark tarry bowel movements over the past 2 days. Anemia with a drop in hemoglobin to 10.2 from 12.9 on 04/11. Patient not on anticoagulation. Abdomen pelvis CTA does not show evidence of GI bleed or other acute intra-abdominal/pelvic processes. Pantoprazole daily Diet: diabetic diet DVT Px: SCDs, Avoid anti-coagulations Monitor serum electrolytes, CBC, hemoglobin/hematocrit q.8 hours. If hemoglobin drops below 7 transfuse packed red blood cells Monitor for bloody bowel movements,chest pain,SOB or dizziness/lightheadedness GI consult EGD showed no signs of recent UGIB plan for outpatient small bowel capsule endoscopy Patient still endorsing dark tarry stools though less frequent. Per GI plan for a XR UGI w/ small bowel on 05/02 given negative EGD. (2) Type 2 diabetes mellitus: Qualifiers: Diabetes mellitus complication status: without complication Diabetes mellitus detention insulin use: without supervisor intermediates use Qualified Code(s): E11.9 - Type 2 diabetes mellitus without complications Code(s): E11.9 - Type 2 diabetes mellitus without complications Status: Chronic Assessment and Plan: Glucose 106 on presentation. Metformin 500 mg daily at home. - hypoglycemia protocol - POC blood glucose ACHS - correct regimen ordered: Low-dose sliding scale - A1C with a.m. labs (3) Abdominal aortic aneurysm (AAA) 3.0 cm to 5.5 cm in diameter in male: Code(s): I71.40 - Abdominal aortic aneurysm, without rupture, unspecified Status: Acute Assessment and Plan: CT abdomen/pelvis: 4.7 cm infrarenal abdominal aortic aneurysm with small endotracheal flap near the aortic bifurcation. Known history, followed by [facility] in [place] (4) Renal artery stenosis: Code(s): I70.1 - Atherosclerosis of renal artery Status: Acute Assessment and Plan: CT abdomen/pelvis: Moderate 50-70% stenosis of the origins of the bilateral renal arteries. (5) Hypertension: Code(s): I10 - Essential (primary) hypertension Status: Acute Assessment and Plan: Chronic, continue home medications - losartan-hctz - blood pressures reviewed and stable, continue to monitor Plan Diet: Consistent carb-NPO tonight GI prophylaxis: Protonix 40 mg daily DVT prophylaxis: Patient up ad-binu. SCDs lines/drains: PIV Fluids: NA Code status: Full Subjective Date/time seen: 05/01/25 08:48 Interval history: 64-year-old male past medical history of HTN, dm 2, AAA presents to the ED on 04/30/2025 with complaints of dark tarry stool that started 2 days ago. Patient is pleasant sitting up comfortably in his chair. He continues to endorse dark tarry stools but states that the frequency has lessened since admission. He has no other complaints denying chest pain, shortness a breath, palpitations, nausea/vomiting, abdominal pain, dizziness/lightheadedness. Review of Systems Review of Systems: All systems reviewed & are unremarkable except as noted in HPI and below Exam Narrative: AF HR 70 RR 22 Spo2 96 BP 138/69 General: male in no acute respiratory distress who is nontoxic appearing, sitting up in chair HEENT: Normocephalic. Atraumatic. Extraocular movement intact. Sclera clear and anicteric. No facial asymmetry. Chest: Lungs are clear to auscultation bilaterally. No wheezes or crackles. CV: Heart was regular rate and rhythm. Abd: Abdomen was soft. Nontender. Nondistended. Positive bowel sounds. Ext: No clubbing, cyanosis, or edema. DP pulses bilaterally. Neuro: Patient is alert and oriented x4. Speech is clear. Objective Data Vital Signs Vital Signs: Vital Signs - 24 hr 04/30/25 10:22 04/30/25 11:04/30/25 12:00 Temperature 97.8 F Pulse Rate 97 73 82 Respiratory Rate 16 18 17 Blood Pressure 158/52 H 148/59 H 139/64 Pulse Oximetry 100 97 95 Oxygen Delivery Room Air Room Air 04/30/25 13:00 04/30/25 14:13 04/30/25 16:18 Temperature Pulse Rate 74 74 77 Respiratory Rate 16 18 20 Blood Pressure 125/94 H 127/58 L 146/88 H Pulse Oximetry 98 99 99 Oxygen Delivery 04/30/25 20:00 04/30/25 22:14 04/30/25 23:33 Temperature 97.5 F L Pulse Rate 77 85 Respiratory Rate 20 16 Blood Pressure 122/58 L Pulse Oximetry 99 97 Oxygen Delivery Room Air Autopap 05/01/25 05:35 05/01/25 07:43 Temperature 98.1 F 97.6 F Pulse Rate 79 80 Respiratory Rate 16 18 Blood Pressure 146/76 H 143/79 H Pulse Oximetry 95 98 Oxygen Delivery Intake/Output Intake/Output: Intake & Output 04/28/25 04/29/25 04/30/25 05/01/25 23:59 23:59 23:59 23:59 Intake Total 350 Balance 350 Meds/Results Medications: Active Medications Generic Name Dose Route Start Last Admin Trade Name Freq PRN Reason Stop Dose Admin Acetaminophen 650 mg 04/30/25 15:55 Acetaminophen 325 Mg Tablet PO Q4H PRN Mild Pain (1-3) or Fever Albuterol/Ipratropium 3 ml 05/01/25 00:28 Ipratropium 0.5 Mg/Albuterol Sulfate 2.5 Mg (Base) Ampul.Neb 3 Ml INHALATION Q6HRT PRN Shortness Of Breath Or Wheezing Atorvastatin Calcium 20 mg 05/01/25 09:00 Atorvastatin 20 Mg Tablet PO DAILY ASHER Dextrose 12.5 gm 04/30/25 18:23 Dextrose 50% 25 Gm/50 Ml Syringe IV PUSH PRN PRN Hypoglycemia Protocol Glucagon 1 mg 04/30/25 18:23 Glucagon For Inj 1 Mg Vial IM PRN PRN Hypoglycemia Protocol Glucose 15 gm 04/30/25 18:23 Glucose Oral Gel 15 Gm Of Glucse In 37.5 Gm Tube PO PRN PRN Hypoglycemia Protocol Hydrochlorothiazide 25 mg 05/01/25 09:00 Hydrochlorothiazide 25 Mg Tablet PO QAM ASHER Dextrose 1,000 mls @ 100 mls/hr 04/30/25 18:23 Dextrose 5% 1,000 Ml IVPB PRN PRN Hypoglycemia Protocol Insulin Aspart 2 - 5 units 05/01/25 08:00 05/01/25 08:11 Insulin Aspart (*Bkc) 100 Units/Ml SUB-Q Not Given TIDWM [facility] Protocol Losartan Potassium 100 mg 05/01/25 09:00 Losartan Potassium 100 Mg Tablet PO DAILY ASHER Ondansetron HCl 4 mg 04/30/25 15:55 Ondansetron Inj 4 Mg/2 Ml Vial IV PUSH Q4H PRN Nausea Pantoprazole Sodium 40 mg 05/01/25 09:00 Pantoprazole 40 Mg Tablet PO QAM ASHER Radiology Results: ITS Impressions Abdomen/Pelvis CTA 04/30/25 14:37 IMPRESSION: 1. No evident gastrointestinal bleed or other acute intra-abdominal/pelvic process. 2. 4.7 cm infrarenal abdominal aortic aneurysm with small endotracheal flap near the aortic bifurcation. 3. Moderate 50-70% stenosis of the origins of the bilateral renal arteries. 4. Diffuse hepatic steatosis. 5. Moderate-sized fat-containing left inguinal hernia. Labs Labs: Laboratory Results - last 24 hr 04/30/25 04/30/25 04/30/25 12:52 13:27 16:37 WBC 4.9 RBC 3.29 L Hgb 10.2 L 10.1 L Hct 30.2 L 29.5 L MCV 91.8 MCH 31.0 MCHC 33.8 RDW 12.8 Plt Count 275 MPV 9.2 Immature Gran % (Auto) 0.6 H Neut % (Auto) 59.3 Lymph % (Auto) 23.4 [place] % (Auto) 10.6 H Eos % (Auto) 5.3 H Baso % (Auto) 0.8 Lymph # (Auto) 1.15 [place] # (Auto) 0.5 Eos # (Auto) 0.3 Baso # (Auto) 0.0 Abs Immat Gran (auto) 0.03 Absolute Neuts (auto) 2.9 Absolute Nucleated RBC 0.000 Nucleated RBC % 0.0 PT 13.4 INR 1.0 APTT 25.7 Sodium 132 L Potassium 4.1 Chloride 97 L Carbon Dioxide 31 H Anion Gap 4 BUN 16 Creatinine 0.75 Estim Creat Clear Calc 97 Estimated GFR > 60 Glucose 106 POC Capillary Glucose Hemoglobin A1c Lactic Acid 0.8 Calcium 9.2 Total Bilirubin 0.7 AST 37 ALT 48 Alkaline Phosphatase 65 NT-Pro-B Natriuret Pep < 20 Total Protein 7.0 Albumin 4.2 Urine Color Yellow Urine Appearance Clear Urine pH 6.5 Ur Specific [place] 1.008 Urine Protein Negative Urine Glucose (UA) Negative Urine Ketones Negative Ur Blood (Man) Negative Urine Nitrate Negative Urine Bilirubin Negative Urine Urobilinogen 0.2 Leukocyte Esterase Rfl Negative Blood Type O Positive Antibody Screen Negative 04/30/25 05/01/25 05/01/25 22:17 04:43 07:47 WBC RBC Hgb Hct MCV MCH MCHC RDW Plt Count MPV Immature Gran % (Auto) Neut % (Auto) Lymph % (Auto) [place] % (Auto) Eos % (Auto) Baso % (Auto) Lymph # (Auto) [place] # (Auto) Eos # (Auto) Baso # (Auto) Abs Immat Gran (auto) Absolute Neuts (auto) Absolute Nucleated RBC Nucleated RBC % PT INR APTT Sodium Potassium Chloride Carbon Dioxide Anion Gap BUN Creatinine Estim Creat Clear Calc Estimated GFR Glucose POC Capillary Glucose 121 H 127 H Hemoglobin A1c 5.9 H Lactic Acid Calcium Total Bilirubin AST ALT Alkaline Phosphatase NT-Pro-B Natriuret Pep Total Protein Albumin Urine Color Urine Appearance Urine pH Ur Specific [place] Urine Protein Urine Glucose (UA) Urine Ketones Ur Blood (Man) Urine Nitrate Urine Bilirubin Urine Urobilinogen Leukocyte Esterase Rfl Blood Type Antibody Screen Quality VTE Prophylaxis VTE prophylaxis: mechanical ordered
[2025-05-01] MEDS: PANTOPRAZOLE 40 MG TABLET PO (08:51)
[2025-05-01] MEDS: ATORVASTATIN 20 MG TABLET PO (08:51)
[2025-05-01] MEDS: LOSARTAN POTASSIUM 100 MG TABLET PO (08:51)
[2025-05-01 09:03] LABS: Hematocrit 27.4 % (42.0-52.0); Hemoglobin 9.2 g/dL (14.0-18.0); Mean Corpuscular HGB Conc 33.6 g/dl (32-36); Mean Corpuscular Hemoglobin 31.3 pg (26-34); Mean Corpuscular Volume 93.2 fl (80-100); Platelet Count Result 261 k/mm3 (150-375); Red Blood Count 2.94 M/mm3 (4.6-6.20); White Blood Count 5.5 K/mm3 (4.5-10.0)
[2025-05-01 09:09] LABS: Alanine Aminotransferase 41 U/L (6-50); Albumin Level 3.8 g/dL (3.5-5.1); Alkaline Phosphatase 52 U/L (38-126); Anion Gap 5 mmol/L (4-12); Aspartate Amino Transferase 36 U/L (17-59); Bilirubin,Total 0.5 mg/dL (0.2-1.3); Blood Urea Nitrogen 17 mg/dL (9-20); Calcium 8.9 mg/dL (8.4-10.2); Carbon Dioxide 31 mmol/L (22-30); Chloride 97 mmol/L (98-107); Estimated CRCL calculation 101 ml/min; Estimated Glomerular Filt Rate > 60; Glucose 95 mg/dL (65-110); Potassium 3.7 mmol/L (3.4-5.0); Sodium 133 mmol/L (137-145); Total Protein 6.3 g/dL (6.3-8.2)
--- NOTE | 2025-05-01 12:42 | PC.NURSE ---
To GI lab via wheelchair. Voiding without difficulty. Family at bedside.
[2025-05-01] MEDS: LACTATED RINGERS 1,000 ML 150 ML IV CONT (13:04)
--- NOTE | 2025-05-01 13:05 | P.PNAN_ITS ---
Anes - Initial Pre Proc Eval Procedure: Operation Date: 05/01/25 14:00 Proposed Procedures p Esophagogastroduodenoscopy - Clem Johnson MD Date/Time: 05/01/25 13:05 Surgeon: Ruth Medina MD Pre Op Diagnosis: melena,gi bleed,anemia Patient Data Age: 64 Gender: M Height: 1.73 m Weight: 94.7 kg Last Vital Signs Temp 36.3 C L 05/01/25 13:00 Pulse 73 05/01/25 13:00 Resp 16 05/01/25 13:00 BP 146/76 H 05/01/25 13:00 Pulse Ox 95 05/01/25 13:00 O2 Del Method Room Air 05/01/25 13:00 Allergies Allergy/AdvReac Type Severity Reaction Status Date / Time No Known Allergies Allergy Verified 05/01/25 12:57 Home Medications ?Medication ?Instructions ?Recorded ?Confirmed ?Type albuterol sulfate 2.5 mg/0.5 mL 5 mg inhalation Q6H KS N shortness 04/11/25 04/30/25 Rx solution for nebulization of breath or wheezing #30 ea albuterol sulfate 90 mcg/actuation 2 puff inhalation Q ID PRN 04/11/25 04/30/25 Rx aerosol inhaler (Ventolin HFA) shortness of breath or wheezing #8.5 grams atorvastatin 20 mg tablet 20 mg PO DAILY 04/30/2504/21 History losartan 100 1 tablet PO DAILY 04/30/25 1 06/30/24 History mg-hydrochlorothiazide 25 mg tablet metformin 500 mg tablet,extended 500 mg PO .q noon 04/1404/30/25 History release 24 hr Laboratory Tests 04/30/25 04/30/25 04/30/25 12:52 13:27 16:37 WBC RBC Hgb 10.1 L g/dL (14.0-18.0) Hct 29.5 L % (42.0-52.0) MCV MCH MCHC RDW Plt Count MPV PT 13.4 Seconds (11.1-14.7) INR 1.0 APTT 25.7 Seconds (22.3-36.8) Sodium 132 L mmol/L (137-145) Potassium 4.1 mmol/L (3.4-5.0) Chloride 97 L mmol/L (98-107) Carbon Dioxide 31 H mmol/L (22-30) Anion Gap 4 mmol/L (4-12) BUN 16 mg/dL (9-20) Creatinine 0.75 mg/dL (0.7-1.3) Estim Creat Clear Calc 97 ml/min Estimated GFR > 60 (59 - ) Glucose 106 mg/dL (65-110) POC Capillary Glucose Hemoglobin A1c Lactic Acid 0.8 mmol/L (0.7-2.0) Calcium 9.2 mg/dL (8.4-10.2) Total Bilirubin 0.7 mg/dL (0.2-1.3) AST 37 U/L (17-59) ALT 48 U/L (6-50) Alkaline Phosphatase 65 U/L (38-126) NT-Pro-B Natriuret Pep < 20 pg/mL (19.9-100) Total Protein 7.0 g/dL (6.3-8.2) Albumin 4.2 g/dL (3.5-5.1) Urine Color Yellow (Yellow) Urine Appearance Clear (Clear) Urine pH 6.5 (5.0-9.0) Ur Specific [place] 1.008 (1.001-1.035) Urine Protein Negative mg/dL (Negative) Urine Glucose (UA) Negative mg/dL (Negative) Urine Ketones Negative mg/dL (Negative) Ur Blood (Man) Negative (Negative) Urine Nitrate Negative (Negative) Urine Bilirubin Negative (Negative) Urine Urobilinogen 0.2 mg/dL (<2.0) Leukocyte Esterase Rfl Negative [place]/UL (Negative) Blood Type O Positive Antibody Screen Negative 04/30/25 05/01/25 05/01/25 22:17 04:39 04:43 WBC 5.5 K/mm3 (4.5-10.0) RBC 2.94 L M/mm3 (4.6-6.20) Hgb 9.2 L g/dL (14.0-18.0) Hct 27.4 L % (42.0-52.0) MCV 93.2 fl (80-100) MCH 31.3 pg (26-34) MCHC 33.6 g/dl (32-36) RDW 13.1 % (11.5-14.5) Plt Count 261 k/mm3 (150-375) MPV 9.4 fl (7.4-10.4) PT INR APTT Sodium 133 L mmol/L (137-145) Potassium 3.7 mmol/L (3.4-5.0) Chloride 97 L mmol/L (98-107) Carbon Dioxide 31 H mmol/L (22-30) Anion Gap 5 mmol/L (4-12) BUN 17 mg/dL (9-20) Creatinine 0.71 mg/dL (0.7-1.3) Estim Creat Clear Calc 101 ml/min Estimated GFR > 60 (59 - ) Glucose 95 mg/dL (65-110) POC Capillary Glucose 121 H mg/dl (65-105) Hemoglobin A1c 5.9 H % (<5.7) Lactic Acid Calcium 8.9 mg/dL (8.4-10.2) Total Bilirubin 0.5 mg/dL (0.2-1.3) AST 36 U/L (17-59) ALT 41 U/L (6-50) Alkaline Phosphatase 52 U/L (38-126) NT-Pro-B Natriuret Pep Total Protein 6.3 g/dL (6.3-8.2) Albumin 3.8 g/dL (3.5-5.1) Urine Color Urine Appearance Urine pH Ur Specific [place] Urine Protein Urine Glucose (UA) Urine Ketones Ur Blood (Man) Urine Nitrate Urine Bilirubin Urine Urobilinogen Leukocyte Esterase Rfl Blood Type Antibody Screen 05/01/25 05/01/25 07:47 11:57 WBC RBC Hgb Hct MCV MCH MCHC RDW Plt Count MPV PT INR APTT Sodium Potassium Chloride Carbon Dioxide Anion Gap BUN Creatinine Estim Creat Clear Calc Estimated GFR Glucose POC Capillary Glucose 127 H mg/dl 136 H mg/dl (65-105) (65-105) Hemoglobin A1c Lactic Acid Calcium Total Bilirubin AST ALT Alkaline Phosphatase NT-Pro-B Natriuret Pep Total Protein Albumin Urine Color Urine Appearance Urine pH Ur Specific [place] Urine Protein Urine Glucose (UA) Urine Ketones Ur Blood (Man) Urine Nitrate Urine Bilirubin Urine Urobilinogen Leukocyte Esterase Rfl Blood Type Antibody Screen Patient hx anesthesia problems: none Family hx anesthesia problems: none Results Review: All pre-operative results and documents have been reviewed as part of the pre- operative evaluation. [facility] Past Medical History Medical History (Updated 05/01/25 @ 08:53 by Yuliya Negron PA-C) Bronchitis March 2025 Abdominal aortic aneurysm Surgical History Surgical History History of colonoscopy approx Family History Family History (Updated 04/30/25 @ 17:43 by Dionne Lundberg RN) Mother Heart disease Hypertension MVA (motor vehicle accident) Sibling Throat cancer Cerebrovascular accident Father Accident at workplace Social History Social History Smoking packs per day: 1 Smoking cigarettes per day: 20.0 Smoking status: Former smoker Tobacco type: cigarettes Second hand tobacco smoke exposure: No Smoking end date: 06/21/99 Alcohol intake: current Drinks per week: 25 Substance use: current Substance use type: marijuana Other substance usage details: 04/28/25 Lack of Transportation: No Lack of Food: Never True Current Housing: I Have Housing Concerned About Future Housing: No Difficulty Paying Gas/Electric Bills: No Difficulty Paying for Meds: No Currently Unemployed: No Education: High School Diploma/GED Difficulty w/ Childcare or Family Care: No Spiritual care concerns: No Anes - Eval Final PreProcedure Day of Procedure 05/01/25 13:05 Patient weight: obese Heart: regular rate and rhythm Lungs: clear to auscultation Airway: Mallampati scale class II and special considerations poor dentition Neurological: alert and oriented Last oral intake: >/= 8 hours ASA classification: IV Emergent: no Anesthetic plan: proceed Anesthesia type and monitoring: general GIVS and standard monitoring Results Review: All pre-operative results and documents have been reviewed as part of the pre- operative evaluation. Informed Consent: The patient's anesthetic plan and its attendant risks and benefits were discussed with the patient/family/POA. Questions were solicited and answers provided to the satisfaction of the patient/family/POA.
--- NOTE | 2025-05-01 13:43 | WPDGICN ---
Assessment and Plan Assessment and plan (1) Melena: Code(s): K92.1 - Melena Status: Acute Assessment and Plan: will proceed with egd to find source of melena if negative then consider SBFT to check small bowel if more bleeding then will get GIB scan (2) Anemia: Code(s): D64.9 - Anemia, unspecified Status: Acute Assessment and Plan: monitor for signs of bleeding (3) Abdominal aortic aneurysm (AAA) 3.0 cm to 5.5 cm in diameter in male: Code(s): I71.40 - Abdominal aortic aneurysm, without rupture, unspecified Status: Acute (4) Type 2 diabetes mellitus: Qualifiers: Diabetes mellitus usp insulin use: without usp use Diabetes mellitus complication status: without complication Qualified Code(s): E11.9 - Type 2 diabetes mellitus without complications Code(s): E11.9 - Type 2 diabetes mellitus without complications Status: Chronic GI Consult Note Consult date/time: 05/01/25 13:43 Reason for consult: melena HPI: Po Marquez is a 64 year old male with past medical history of HTN, dm 2, AAA for which he is seeing vascular surgery here with new onset of dark tarry stool that started 2 days ago. He noted dark tarry stools every time he has a bowel movement and estimates this has happened roughly 8 times in the past 2 days. Patient states he does not take NSAIDs and is not on any chronic anticoagulation. Patient states that he has never had this happen before. Denies any abdominal pain, nausea, vomiting. Patient reports he had a colonoscopy performed elsewhere 2 years ago and had a few polyps removed, taking baby aspirin, denies previous gib. ER showed anemia with a drop in hemoglobin to 10.2 from 12.9 on 04/11. Abdomen pelvis CTA reviewed- does not show evidence of GI bleed or other acute intra-abdominal/pelvic processes. 4.7 cm AAA with small endotracheal flap near the aortic bifurcation noted. 50-70% stenosis of the origins of bilateral renal arteries, diffuse hepatic stenosis, moderate size fat containing left inguinal hernia. Review of Systems Constitutional: Constitutional: Denies chills Eyes: Eyes: Denies blurry vision ENT: Reports Normal hearing present and Denies neck pain Cardiovascular: Cardiovascular: Denies chest pain and Denies dyspnea Respiratory: Respiratory: Denies dyspnea Gastrointestinal: Gastrointestinal: Reports no additional gastrointestinal complaints Genitourinary: Genitourinary: Denies dysuria Musculoskeletal: Musculoskeletal: Denies neck pain Integumentary/Breasts: Skin/Breast: Denies dry skin Neurologic: Reports Normal hearing present Psychiatric: Psychiatric: Denies anxiety [facility] Past Medical History Medical History (Updated 05/01/25 @ 16:39 by Clem Johnson MD) Anemia Bronchitis March 2025 Abdominal aortic aneurysm Surgical History Surgical History History of colonoscopy approx Family History Family History (Updated 04/30/25 @ 17:43 by Dionne Lundberg RN) Mother Heart disease Hypertension MVA (motor vehicle accident) Sibling Throat cancer Cerebrovascular accident Father Accident at workplace Social History Social History Smoking packs per day: 1 Smoking cigarettes per day: 20.0 Smoking status: Former smoker Tobacco type: cigarettes Second hand tobacco smoke exposure: No Smoking end date: 06/21/99 Alcohol intake: current Drinks per week: 25 Substance use: current Substance use type: marijuana Other substance usage details: 04/28/25 Lack of Transportation: No Lack of Food: Never True Current Housing: I Have Housing Concerned About Future Housing: No Difficulty Paying Gas/Electric Bills: No Difficulty Paying for Meds: No Currently Unemployed: No Education: High School Diploma/GED Difficulty w/ Childcare or Family Care: No Spiritual care concerns: No Meds Home Medications and Allergies Home Medications ?Medication ?Instructions ?Recorded ?Confirmed ?Type albuterol sulfate 2.5 mg/0.5 mL 5 mg inhalation Q6H PRN shortness 04/11/25 04/30/25 Rx solution for nebulization of breath or wheezing #30 ea albuterol sulfate 90 mcg/actuation 2 puff inhalation QID PRN 04/11/25 04/30/25 Rx aerosol inhaler (Ventolin HFA) shortness of breath or wheezing #8.5 grams atorvastatin 20 mg tablet 20 mg PO DAILY 04/30/25 04/30/25 History losartan 100 1 tablet PO DAILY 04/30/25 04/30/25 History mg-hydrochlorothiazide 25 mg tablet metformin 500 mg tablet,extended 500 mg PO .q noon 04/30/25 04/30/25 History release 24 hr Allergies Allergy/AdvReac Type Severity Reaction Status Date / Time No Known Allergies Allergy Verified 05/01/25 12:57 Vital Signs Vital Signs - 24 hr 04/30/25 14:13 04/30/25 16:18 04/30/25 20:00 Temperature Pulse Rate 74 77 77 Respiratory Rate 18 20 20 Blood Pressure 127/58 L 146/88 H Pulse Oximetry 99 99 99 Oxygen Delivery Room Air 04/30/25 22:14 04/30/25 23:33 05/01/25 05:35 Temperature 97.5 F L 98.1 F Pulse Rate 85 79 Respiratory Rate 16 16 Blood Pressure 122/58 L 146/76 H Pulse Oximetry 97 95 Oxygen Delivery Autopap 05/01/25 07:43 05/01/25 08:54 05/01/25 13:00 Temperature 97.6 F 97.4 F L Pulse Rate 80 73 Respiratory Rate 18 18 16 Blood Pressure 143/79 H 146/76 H Pulse Oximetry 98 98 95 Oxygen Delivery Room Air Room Air Exam Const: General: comfortable and no acute distress HENMT: Face/Nose/Sinus: Normal nares present Eyes: General: appearance normal, both eyes and all related structures Neck: Neck: no JVD Resp: Auscultation: clear to auscultation bilaterally Cardio: Rate: regular rate Rhythm: regular rhythm GI: Inspection: non-distended GI Palp: Yes Soft to palpation Skin: General skin exam: normal color Neuro: Speech: normal speech Extrem: General: normal to inspection Psych: Mental Status: mental status grossly normal Results Labs 05/01/25 04:39 05/01/25 04:39 Labs: Short CBC 04/30/25 05/01/25 Range/Units 16:37 04:39 WBC 5.5 (4.5-10.0) K/mm3 Hgb 10.1 L 9.2 L (14.0-18.0) g/dL Hct 29.5 L 27.4 L (42.0-52.0) % Plt Count 261 (150-375) k/mm3 [facility] 05/01/25 04:39 Sodium 133 L Potassium 3.7 Chloride 97 L Carbon Dioxide 31 H BUN 17 Creatinine 0.71 Glucose 95 Calcium 8.9 Liver Function 05/01/25 Range/Units 04:39 Total Bilirubin 0.5 (0.2-1.3) mg/dL AST 36 (17-59) U/L ALT 41 (6-50) U/L Alkaline Phosphatase 52 (38-126) U/L Albumin 3.8 (3.5-5.1) g/dL
[2025-05-02 04:25] VITALS: BP 129/71; PULSE 80; RESP 18; TEMP 36.4; O2SAT 98
[2025-05-02 04:28] LABS: Hematocrit 27.8 % (42.0-52.0); Hemoglobin 9.2 g/dL (14.0-18.0); Immature Granulocyte Percent A 0.2 % (0-0.5); Lymphocytes Absolute Auto 1.10 K/mm3 (0.9-3.2); Mean Corpuscular HGB Conc 33.1 g/dl (32-36); Mean Corpuscular Hemoglobin 30.8 pg (26-34); Mean Corpuscular Volume 93.0 fl (80-100); Nucleated Red Blood Cells Absolute Auto 0.000 K/mm3 (0.0-0.012); Nucleated Red Blood Cells Perc 0.0 % (0.0-0.2); Platelet Count Result 237 k/mm3 (150-375); Red Blood Count 2.99 M/mm3 (4.6-6.20); White Blood Count 4.7 K/mm3 (4.5-10.0)
[2025-05-02 04:43] LABS: Alanine Aminotransferase 40 U/L (6-50); Albumin Level 3.9 g/dL (3.5-5.1); Alkaline Phosphatase 52 U/L (38-126); Anion Gap 6 mmol/L (4-12); Aspartate Amino Transferase 31 U/L (17-59); Bilirubin,Total 0.6 mg/dL (0.2-1.3); Blood Urea Nitrogen 11 mg/dL (9-20); Calcium 9.0 mg/dL (8.4-10.2); Carbon Dioxide 29 mmol/L (22-30); Chloride 99 mmol/L (98-107); Estimated CRCL calculation 99 ml/min; Estimated Glomerular Filt Rate > 60; Glucose 117 mg/dL (65-110); Potassium 3.8 mmol/L (3.4-5.0); Sodium 134 mmol/L (137-145); Total Protein 6.4 g/dL (6.3-8.2)
[2025-05-02] MEDS: LOSARTAN POTASSIUM 100 MG TABLET PO (12:02)
[2025-05-02] MEDS: ATORVASTATIN 20 MG TABLET PO (12:02)
[2025-05-02] MEDS: PANTOPRAZOLE 40 MG TABLET PO (12:02)
--- NOTE | 2025-05-02 16:11 | P.DS_ITS ---
DS: Admitting Diagnosis Discharge Date 05/02/25 Admitting Diagnosis melena dm aaa renal artery stenosis htn DS: Discharge Diagnosis Discharge Diagnosis (1) Melena: Code(s): K92.1 - Melena Status: Acute (2) Type 2 diabetes mellitus: Qualifiers: Diabetes mellitus custodial insulin use: without lobsterman use Diabetes mellitus complication status: without complication Qualified Code(s): E11.9 - Type 2 diabetes mellitus without complications Code(s): E11.9 - Type 2 diabetes mellitus without complications Status: Chronic (3) Abdominal aortic aneurysm (AAA) 3.0 cm to 5.5 cm in diameter in male: Code(s): I71.40 - Abdominal aortic aneurysm, without rupture, unspecified Status: Acute (4) Renal artery stenosis: Code(s): I70.1 - Atherosclerosis of renal artery Status: Acute (5) Hypertension: Code(s): I10 - Essential (primary) hypertension Status: Acute DS: Summary Hospital Course Reason for hospitalization: melena dm aaa renal artery stenosis htn Hospital Course: 64-year-old male with a history of hypertension, type 2 diabetes mellitus, and abdominal aortic aneurysm who presented with two days of dark, tarry stools o ccurring with every bowel movement, totaling approximately eight episodes. He denied abdominal pain, nausea, vomiting, or prior episodes. He was not taking NSAIDs or anticoagulants. On admission, he was hemodynamically stable and afebrile, with a blood pressure of 158/52 and heart rate of 97. Laboratory evaluation revealed new-onset anemia, with hemoglobin dropping from 12.9 to 10.2 g/dL, and mild hyponatremia. His physical exam was unremarkable, with no abdominal tenderness or signs of acute distress. Imaging with CTA of the abdomen and pelvis did not reveal an active gastrointestinal bleed or other acute intra- abdominal pathology but did confirm a 4.7 cm infrarenal abdominal aortic aneurysm, moderate bilateral renal artery stenosis, diffuse hepatic steatosis, and a moderate-sized left inguinal hernia. The patient was admitted for further evaluation of melena and anemia. He was placed on pantoprazole for GI prophylaxis and monitored closely with serial hemoglobin and hematocrit checks. GI was consulted, and an EGD was performed, which did not reveal an upper GI source of bleeding. Given ongoing, though less frequent melena, a GI bleed NM scan and upper GI and small bowel XR was ob tained, both of which were negative for acute bleeding. The patient is to follow up in the GI office for further evaluation with small bowel imaging (capsule endoscopy). Throughout his hospitalization, the patient remained hemodynamically stable, with no evidence of active bleeding, and his hemoglobin remained stable. He was counseled on signs of recurrent bleeding and the need for outpatient foll ow-up for further GI workup. Patient is to obtain a repeat CBC in 5 days to reassess H/H levels.Prior to discharge discussed patient with sap solution manager consultant GI who states patient is stable for discharge from their perspective with follow up in the office. Discussed with patient that he will require continued surveillance of his abdominal aortic aneurysm. Also discussed with patient that his renal artery st enosis needs to be monitored and he should obtain a vascular surgery referral from his PCP. Renal function remains WNL and blood pressures well controlled on current antihypertensives. Patient had no complaints at time of discharge denying chest pain, shortness a breath, palpitations, nausea/vomiting, and abdominal pain. Patient states that the dark tarry stools have resolved. He denies any dizziness/lightheadedness with ambulation. Patient discharged home in a stable condition. He is to follow up his primary care provider in 1 week and GI as scheduled. Status at Discharge Functional status at discharge: independent ambulation Time Spent with Patient Time attestation: Total time spent providing and/or coordinating discharge services: Time spent: Greater than 30 minutes Exam Narrative: AF HR 80 RR 18 SpO2 98 BP 129/71 General: male in no acute respiratory distress who is nontoxic appearing, sitting up in chair HEENT: Normocephalic. Atraumatic. Extraocular movement intact. Sclera clear and anicteric. No facial asymmetry. Chest: Lungs are clear to auscultation bilaterally. No wheezes or crackles. CV: Heart was regular rate and rhythm. Abd: Abdomen was soft. Nontender. Nondistended. Positive bowel sounds. Ext: No clubbing, cyanosis, or edema. DP pulses bilaterally. Neuro: Patient is alert and oriented x4. Speech is clear. DS: Data Data Completed and Pending Completed studies during hospitalization: upper gi and small bowel xr gi bleed nm abdomen pelvis cta Labs on day of discharge: Labs from last 24 hours 05/02/25 05/02/25 05/02/25 11:52 07:31 04:12 WBC 4.7 RBC 2.99 L Hgb 9.2 L Hct 27.8 L MCV 93.0 MCH 30.8 MCHC 33.1 RDW 13.1 Plt Count 237 MPV 8.8 Immature Gran % (Auto) 0.2 Neut % (Auto) 62.1 Lymph % (Auto) 23.6 [place] % (Auto) 7.9 Eos % (Auto) 5.6 H Baso % (Auto) 0.6 Lymph # (Auto) 1.10 [place] # (Auto) 0.4 Eos # (Auto) 0.3 Baso # (Auto) 0.0 Abs Immat Gran (auto) 0.01 Absolute Neuts (auto) 2.9 Absolute Nucleated RBC 0.000 Nucleated RBC % 0.0 Sodium 134 L Potassium 3.8 Chloride 99 Carbon Dioxide 29 Anion Gap 6 BUN 11 D Creatinine 0.73 Estim Creat Clear Calc 99 Estimated GFR > 60 Glucose 117 H POC Capillary Glucose 123 H 127 H Calcium 9.0 Total Bilirubin 0.6 AST 31 ALT 40 Alkaline Phosphatase 52 Total Protein 6.4 Albumin 3.9 05/01/25 05/01/25 19:59 16:40 WBC RBC Hgb Hct MCV MCH MCHC RDW Plt Count MPV Immature Gran % (Auto) Neut % (Auto) Lymph % (Auto) [place] % (Auto) Eos % (Auto) Baso % (Auto) Lymph # (Auto) [place] # (Auto) Eos # (Auto) Baso # (Auto) Abs Immat Gran (auto) Absolute Neuts (auto) Absolute Nucleated RBC Nucleated RBC % Sodium Potassium Chloride Carbon Dioxide Anion Gap BUN Creatinine Estim Creat Clear Calc Estimated GFR Glucose POC Capillary Glucose 155 H 256 H Calcium Total Bilirubin AST ALT Alkaline Phosphatase Total Protein Albumin Discharge Plan Discharge Attending physician on discharge: Marcell Pop Consulting providers: Salome Naylor; Yuliya Negron; Clem Díaz Discharging Clinician: Yuliya Negron Anticipated Discharge Date/Time: 05/02/25 13:07 Patient Disposition: Home Activity: as tolerated Diet: as tolerated and diabetic Discharge Instructions: Patient admitted to the hospital with concern of GI bleed Evaluated by GI and an endoscopy as well as imaging was performed and negative for acute GI bleed Eat well balanced meals and do not over hydrate Keep active Keep an eye on your stool, should your stool be black or dark purple, you should come back to the hospital Get labs in one week to reassess blood levels, these will be cc to your PCP for follow up Monitor blood pressures Take caution while standing, rising, or moving Change positions slowly taking a break between each position change If you standing feel dizzy sit back down and take a break Follow up with GI in the outpatient setting, attached is information to their office Patient noted to have renal artery stenosis Follow up with vascular surgery, referral to be obtained from PCP Aortic aneurysm again seen on imaging Continue to have this followed by [facility] Encouraged to continue with yearly vaccinations Return to the emergency department if he developed sudden shortness of breath, chest pain, nausea, vomiting, upset stomach or intractable diarrhea Return to the emergency department if you develop fever greater than 100.5 Follow-up with the primary care physician within 1-2 weeks Thank you for choosing [facility] for your healthcare needs Patient Instructions: Gastrointestinal Bleeding (DC), Rectal Bleeding (DC) Patient Language: Arabic Stand Alone Forms: General Discharge Information Follow-up/Referrals: Salome Naylor MD [Physician, Family Practice] Clem Johnson MD [Physician, Gastroenterology] - Call for Appo intment Discharge Medications: Continued atorvastatin 20 mg tablet 20 mg PO DAILY losartan-hydrochlorothiazide 100-25 mg tablet 1 tablet PO DAILY metformin 500 mg tablet extended release 24 hr 500 mg PO .q noon albuterol sulfate [Ventolin HFA] 90 mcg/actuation HFA aerosol inhaler 2 puff inhalation QID PRN (Reason: shortness of breath or wheezing) Qty: 8.5 0RF albuterol sulfate 2.5 mg/0.5 mL solution for nebulization 5 mg inhalation Q6H PRN (Reason: shortness of breath or wheezing) Qty: 30 0RF Other Ambulatory Orders: Complete Blood Count no Diff (Routine) Timeframe: 5 Days Location: Determined by Patient Ordered By: Yuliya Negron Date of admission: 04/30/25 15:56 Primary Care Provider: PHYSICIAN NOT ON STAFF,NONSTAFF Admitting Provider: Ruth Medina Attending physician on admission: Ruth Medina Condition: Stable Hospitalist MIPS Heart Failure (Exclusion) Patient has history of Heart Transplant or Left Ventricular Assistive Device?: No IF YES, STOP HERE Heart Failure (Qualifier) Patient has current or prior documentation of LVEF less than or equal to 40%, or mod/servere depressed LVSF?: No IF NO, STOP HERE
--- NOTE | 2025-05-02 17:19 | P.PNGI_ITS ---
Progress Note: A&P Assessment and Plan (1) Melena: Code(s): K92.1 - Melena Status: Acute Assessment and Plan: egd negative sbft no major findings gib scan negative he is going home and will set up SB capsule endoscopy to assess small bowel h/h stable also noted normal bun (2) Anemia: Code(s): D64.9 - Anemia, unspecified Status: Acute (3) Type 2 diabetes mellitus: Qualifiers: Diabetes mellitus terminal operations supervisor insulin use: without senior care use Diabetes mellitus complication status: without complication Qualified Code(s): E11.9 - Type 2 diabetes mellitus without complications Code(s): E11.9 - Type 2 diabetes mellitus without complications Status: Chronic (4) Abdominal aortic aneurysm (AAA) 3.0 cm to 5.5 cm in diameter in male: Code(s): I71.40 - Abdominal aortic aneurysm, without rupture, unspecified Status: Acute (5) Hypertension: Code(s): I10 - Essential (primary) hypertension Status: Acute Subjective Date/time seen: 05/02/25 10:19 Interval history: egd without signs of ugib he completed test and no evidence of recent bleeding he is going home Review of Systems Review of Systems: All systems reviewed & are unremarkable except as noted in HPI and below Exam Const: General: comfortable and no acute distress HENMT: Face/Nose/Sinus: Normal nares present Eyes: General: appearance normal, both eyes and all related structures Neck: Neck: no JVD Resp: Auscultation: clear to auscultation bilaterally Cardio: Rate: regular rate Rhythm: regular rhythm GI: Inspection: non-distended GI Palp: Yes Soft to palpation Skin: General skin exam: normal color Neuro: Speech: normal speech Extrem: General: normal to inspection Psych: Mental Status: mental status grossly normal Objective Data Vital Signs Vital Signs: Vital Signs - 24 hr 05/01/25 20:01 05/01/25 20:42 05/01/25 23:39 Temperature 98.3 F Pulse Rate 78 Respiratory Rate 18 Blood Pressure 127/59 L Pulse Oximetry 96 Oxygen Delivery Room Air Autopap 05/02/25 04:25 05/02/25 12:23 Temperature 97.6 F Pulse Rate 80 Respiratory Rate 18 Blood Pressure 129/71 Pulse Oximetry 98 Oxygen Delivery Room Air Intake/Output Intake/Output: Intake & Output 04/29/25 04/30/25 05/01/25 05/02/25 23:59 23:59 23:59 23:59 Intake Total 2480 550 Balance 2480 550 Meds/Results Radiology Results: ITS Impressions Abdomen/Pelvis CTA 04/30/25 14:37 IMPRESSION: 1. No evident gastrointestinal bleed or other acute intra-abdominal/pelvic process. 2. 4.7 cm infrarenal abdominal aortic aneurysm with small endotracheal flap near the aortic bifurcation. 3. Moderate 50-70% stenosis of the origins of the bilateral renal arteries. 4. Diffuse hepatic steatosis. 5. Moderate-sized fat-containing left inguinal hernia. GI Bleed Scan Nuclear Medicine 05/02/25 09:43 IMPRESSION: 1. No scintigraphic evidence for active gastrointestinal bleeding. Upper GI and Small Bowel X-Ray 05/02/25 11:38 IMPRESSION: 1. Small hiatal hernia and tertiary contractions of the esophagus suggesting esophagitis. Otherwise normal-appearing esophagus. 2. Limited air contrast images of the stomach which otherwise appear normal. The duodenal bulb is poorly evaluated and endoscopic evaluation should be considered as clinically appropriate. 3. Rapid transit of contrast through the small bowel. Query if patient has presentation suggestive of hyperactive bowel. No evidence of obstruction or extravasation. Labs Labs: Laboratory Results - last 24 hr 05/01/25 05/02/25 05/02/25 19:59 04:12 07:31 WBC 4.7 RBC 2.99 L Hgb 9.2 L Hct 27.8 L MCV 93.0 MCH 30.8 MCHC 33.1 RDW 13.1 Plt Count 237 MPV 8.8 Immature Gran % (Auto) 0.2 Neut % (Auto) 62.1 Lymph % (Auto) 23.6 [place] % (Auto) 7.9 Eos % (Auto) 5.6 H Baso % (Auto) 0.6 Lymph # (Auto) 1.10 [place] # (Auto) 0.4 Eos # (Auto) 0.3 Baso # (Auto) 0.0 Abs Immat Gran (auto) 0.01 Absolute Neuts (auto) 2.9 Absolute Nucleated RBC 0.000 Nucleated RBC % 0.0 Sodium 134 L Potassium 3.8 Chloride 99 Carbon Dioxide 29 Anion Gap 6 BUN 11 D Creatinine 0.73 Estim Creat Clear Calc 99 Estimated GFR > 60 Glucose 117 H POC Capillary Glucose 155 H 127 H Calcium 9.0 Total Bilirubin 0.6 AST 31 ALT 40 Alkaline Phosphatase 52 Total Protein 6.4 Albumin 3.9 05/02/25 11:52 WBC RBC Hgb Hct MCV MCH MCHC RDW Plt Count MPV Immature Gran % (Auto) Neut % (Auto) Lymph % (Auto) [place] % (Auto) Eos % (Auto) Baso % (Auto) Lymph # (Auto) [place] # (Auto) Eos # (Auto) Baso # (Auto) Abs Immat Gran (auto) Absolute Neuts (auto) Absolute Nucleated RBC Nucleated RBC % Sodium Potassium Chloride Carbon Dioxide Anion Gap BUN Creatinine Estim Creat Clear Calc Estimated GFR Glucose POC Capillary Glucose 123 H Calcium Total Bilirubin AST ALT Alkaline Phosphatase Total Protein Albumin
--- NOTE | 2025-05-10 14:02 | PC.NURSE ---
Received call from pt stating that Dr. Rojas is not in network for him. Told pt I will mail him a referral that he can take to the GI provider that is in network. Instructed him to check his insurance web site to locate a provider. Pt states agreement and understanding.
== END 2025-05-02 13:40 | disposition home or self-care (01) ==
LOC: ANHED 13:00 → ANH2MED 23:42
PROVIDERS: General Practice; Internal Medicine Gastroenterology; Nurse Practitioner Adult Health; Student in an Organized Health Care Education/Training Program; Admitting Provider Family Medicine; Emergency Provider Student in an Organized Health Care Education/Training Program; Visit Provider Family Medicine
PROC: 0DJ08ZZ Inspection of Upper Intestinal Tract, Via Natural or Artificial Opening Endoscopic (ICD-10-PCS; CPT 43235; principal; 2025-05-01 14:00)
DX: K92.1 Melena (principal); I71.43 Infrarenal abdominal aortic aneurysm, without rupture; K40.90 Unilateral inguinal hernia, without obstruction or gangrene, not specified as recurrent; I70.1 Atherosclerosis of renal artery; D64.9 Anemia, unspecified; K76.0 Fatty (change of) liver, not elsewhere classified; I10 Essential (primary) hypertension; E11.9 Type 2 diabetes mellitus without complications; F12.90 Cannabis use, unspecified, uncomplicated; Z71.1 Person with feared health complaint in whom no diagnosis is made; Z79.82 Long term (current) use of aspirin; Z79.52 Long term (current) use of systemic steroids; Z79.84 Long term (current) use of oral hypoglycemic drugs; Z87.891 Personal history of nicotine dependence; Z82.3 Family history of stroke; Z80.0 Family history of malignant neoplasm of digestive organs; Z82.49 Family history of ischemic heart disease and other diseases of the circulatory system
CPT/HCPCS: 43235; 36415; 74174; 74240; 74248; 78278; 80053; 81003; 82948; 83036; 83605; 83880; 85014; 85018; 85025; 85027; 85610; 85730; 86850; 86900; 86901; 99285; A9270; A9560; G0378; J2003; J2470; J2704; J7120; Q9967